=== PATIENT | female | born 1955 | race Caucasian/White ===

== ENCOUNTER → 2024-07-02 | Outpatient (BNVA) | payer MEDICARE, MEDICAID, SELFPAY | END | disposition home or self-care (01) | PROVIDERS: PCP Nurse Practitioner Family; Referring Provider Nurse Practitioner Family; Visit Provider Urology | DX: N81.6 Rectocele (principal); G89.4 Chronic pain syndrome; Z87.440 Personal history of urinary (tract) infections; E11.9 Type 2 diabetes mellitus without complications; I10 Essential (primary) hypertension; N35.92 Unspecified urethral stricture, female; E78.00 Pure hypercholesterolemia, unspecified; K21.9 Gastro-esophageal reflux disease without esophagitis; E03.9 Hypothyroidism, unspecified | CPT/HCPCS: 81003; 99212; G0463 ==

== ENCOUNTER → 2024-09-03 | Outpatient (CLI) | payer MEDICARE, MEDICAID, SELFPAY ==
[2024-09-03 11:01] LABS: Quantiferon-TB* See Sep Rpt
[2024-09-03 11:28] LABS: Basophils % (Auto) 0 % (0-2.5); Eosinophils # (Auto) 0.2 Thou/mm3 (0.0-0.5); Eosinophils % (Auto) 2 % (0-10); Hematocrit 38.6 % (36.0-46.0); Hemoglobin 12.6 g/dL (12.0-16.0); Immature Granulocytes % (Auto) 0 % (0-0); Immature Granulocytes Auto 0.03 Thou/mm3 (0.00-0.00); Lymphocytes # (Auto) 2.5 Thou/mm3 (1.0-4.8); Lymphocytes % (Auto) 29 % (10-50); Mean Corpuscular HGB Conc 32.6 g/dl (31.0-37.0); Mean Corpuscular Hemoglobin 28.1 pg (25.0-35.0); Mean Corpuscular Volume 86 fL (80-100); Monocytes # (Auto) 0.7 Thou/mm3 (0.0-0.8); Monocytes % (Auto) 8 % (0-12); Neutrophils # (Auto) 5.2 Thou/mm3 (1.8-7.7); Neutrophils % (Auto) 61 % (37-80); Nucleated Red Blood Cell % 0 /100 WBC (0); Platelet Count 347 Thou/mm3 (140-440); RDW Standard Deviation 42.8 fL (36.4-46.3); Red Blood Count 4.48 Miln/mm3 (4.00-5.20); White Blood Count 8.6 Thou/mm3 (3.6-11.0)
[2024-09-03 11:33] LABS: Collection Type, Urine Clean Catch
[2024-09-03 11:46] LABS: Parathyroid Hormone Intact 32.7 pg/ml (18.5-88.0)
[2024-09-03 11:52] LABS: Sed Rate (ESR) 25 mm/hr (0-30)
[2024-09-03 11:55] LABS: Folate > 24.00 ng/mL (>5.38); Vitamin B12 784 pg/mL (211-911); Vitamin D 25 Hydroxy Total 40.6 ng/mL (7.3-40.2)
[2024-09-03 11:58] LABS: Alanine Aminotransferase 16 U/L (10-49); Albumin, Serum 4.4 gm/dL (3.4-4.8); Albumin/Globulin Ratio 1.6 (1.2-2.2); Alkaline Phosphatase 89 U/L (46-116); Amylase 82 U/L (30-118); Anion Gap 8 (7-16); Aspartate Amino Transferase 15 U/L (0-34); BUN/Creatinine Ratio 36 Ratio (12-20); Bilirubin,Total 0.4 mg/dL (0.3-1.2); Blood Urea Nitrogen 29 mg/dL (9-23); C-Reactive Protein 2.4 mg/dL (0.0-0.9); Carbon Dioxide 26.7 mMol/L (20.0-31.0); Cardiac Risk Estimate 3.2 RATIO (3.7-5.6); Chloride 102 mMol/L (98-107); Cholesterol 164 mg/dL (132-200); Creatinine (Component) 0.8 mg/dL (0.6-1.3); Free T4 (Free Thyroxine) 1.55 ng/dL (0.89-1.76); Globulin 2.7 gm/dL (2.3-3.5); Glucose 100 mg/dL (74-106); HDL Cholesterol 52 mg/dL (40-60); LDL Cholesterol,Calculated 84 mg/dL (0-130); Lipase 50 U/L (12-53); Osmolality,Calculated 279 (275-295); Phosphorous 2.8 mg/dL (2.4-5.1); Potassium 4.1 mMol/L (3.4-5.1); Sodium 137 mMol/L (136-145); Thyroid Stimulating Hormone 0.02 uIU/mL (0.55-4.78); Total Protein 7.1 gm/dL (5.7-8.2); Triglycerides 138 mg/dL (30-150); eGFR > 60 See Note
[2024-09-03 12:05] LABS: Ferritin 44 ng/mL (7.3-270.7); Glucose Estimated Average 117 mg/dL (80-131); Hemoglobin A1C 5.7 % Hgb (4.8-6.0); Total Iron Binding Capacity 239 mcg/dL (250-425)
[2024-09-03 12:15] LABS: Iron 63 mcg/dL (50-170)
[2024-09-03 12:56] LABS: Bilirubin,Urine Negative (Negative); Blood,Urine Negative (Negative); Clarity,Urine Clear (Clear/Hazy); Color,Urine Yellow (Lt Yel-Yel); Culture Indicated,Urine Not Indicated; Glucose, Urine Negative (Negative); Ketones,Urine Negative (Negative); Leukocyte Esterase,Urine Negative (Negative); Nitrite,Urine Negative (Negative); Protein,Urine Negative (Neg - Trace); RBC,Urine 3 /hpf (0-3); Specific Gravity,Urine 1.025 (1.001-1.035); Squamous Epithelial Cell,Urine 15 /hpf (0-5); Urobilinogen,Urine Negative mg/dL (0.0-1.0); WBC,Urine 1 /hpf (0-5)
[2024-09-03 13:10] LABS: Creatinine MALB Rnd Ur 131 mg/dL (30-125); Microalbumin, Random Urine < 3 mg/L (0-300)
[2024-09-06 06:46] LABS: T3 Uptake* 28 % (22-35)
[2024-09-10 07:04] LABS: Vitamin B1 (Thiamine)* 9 nmol/L (8-30)
== END | disposition home or self-care (01) ==
PROVIDERS: PCP Internal Medicine; Referring Provider Nurse Practitioner Family; Visit Provider Nurse Practitioner Family
DX: Z00.00 Encounter for general adult medical examination without abnormal findings (principal); B37.9 Candidiasis, unspecified; D50.9 Iron deficiency anemia, unspecified; E03.9 Hypothyroidism, unspecified; E11.9 Type 2 diabetes mellitus without complications; E66.9 Obesity, unspecified; E78.5 Hyperlipidemia, unspecified; F33.1 Major depressive disorder, recurrent, moderate; G25.81 Restless legs syndrome; G31.84 Mild cognitive impairment of uncertain or unknown etiology; G43.019 Migraine without aura, intractable, without status migrainosus; G43.111 Migraine with aura, intractable, with status migrainosus; G47.00 Insomnia, unspecified; H01.001 Unspecified blepharitis right upper eyelid; H04.123 Dry eye syndrome of bilateral lacrimal glands; H05.013 Cellulitis of bilateral orbits; H10.13 Acute atopic conjunctivitis, bilateral; H60.313 Diffuse otitis externa, bilateral; H60.8X3 Other otitis externa, bilateral; H62.43 Otitis externa in other diseases classified elsewhere, bilateral; H66.93 Otitis media, unspecified, bilateral; I10 Essential (primary) hypertension; J18.9 Pneumonia, unspecified organism; J30.2 Other seasonal allergic rhinitis; K21.9 Gastro-esophageal reflux disease without esophagitis; K58.2 Mixed irritable bowel syndrome; K59.00 Constipation, unspecified; L29.9 Pruritus, unspecified; M06.4 Inflammatory polyarthropathy; M17.12 Unilateral primary osteoarthritis, left knee; M25.50 Pain in unspecified joint; M25.512 Pain in left shoulder; M25.551 Pain in right hip; M48.061 Spinal stenosis, lumbar region without neurogenic claudication; M48.062 Spinal stenosis, lumbar region with neurogenic claudication; M79.10 Myalgia, unspecified site; M85.80 Other specified disorders of bone density and structure, unspecified site; M89.9 Disorder of bone, unspecified; N32.81 Overactive bladder; N39.0 Urinary tract infection, site not specified; N76.0 Acute vaginitis; N95.1 Menopausal and female climacteric states; N95.9 Unspecified menopausal and perimenopausal disorder; R07.81 Pleurodynia; R07.89 Other chest pain; R09.89 Other specified symptoms and signs involving the circulatory and respiratory systems; R10.13 Epigastric pain; R10.9 Unspecified abdominal pain; R11.0 Nausea; R11.2 Nausea with vomiting, unspecified; R19.7 Diarrhea, unspecified; R30.0 Dysuria; R42 Dizziness and giddiness; R53.1 Weakness; R63.2 Polyphagia; R93.5 Abnormal findings on diagnostic imaging of other abdominal regions, including retroperitoneum; U07.1 COVID-19; W19.XXXA Unspecified fall, initial encounter; Z12.11 Encounter for screening for malignant neoplasm of colon; Z12.31 Encounter for screening mammogram for malignant neoplasm of breast; Z13.820 Encounter for screening for osteoporosis; Z20.822 Contact with and (suspected) exposure to COVID-19; Z71.1 Person with feared health complaint in whom no diagnosis is made; Z71.2 Person consulting for explanation of examination or test findings; Z79.899 Other long term (current) drug therapy; Z96.651 Presence of right artificial knee joint; E55.9 Vitamin D deficiency, unspecified
CPT/HCPCS: 36415; 80053; 80061; 81001; 82043; 82150; 82306; 82570; 82607; 82728; 82746; 83036; 83540; 83550; 83690; 83970; 84100; 84425; 84439; 84443; 84479; 85025; 85652; 86140; 86480

== ENCOUNTER 2024-09-09 12:17 | Emergency (ER) | payer MEDICARE, MEDICAID, SELFPAY ==
[2024-09-09 12:24] VITALS: BP 122/64; PULSE 80; RESP 20; TEMP 36.7; O2SAT 99
--- NOTE | 2024-09-09 12:47 | XR_ITS ---
Examination: PA chest single view TECHNIQUE: Upright PA chest single view Exam date and time: September 09, 2024 1243 hours INDICATIONS: Chest pain today. FINDINGS: Normal heart size. Lungs are clear. The osseous structures are intact IMPRESSION: No active disease
[2024-09-09] MEDS: DIAZEPAM 5 MG TABLET PO (12:48)
[2024-09-09] MEDS: LIDOCAINE VISCOUS 2% 15 ML UDC PO (12:52)
[2024-09-09] MEDS: MG HYD/AL HYD/SIME (Maalox Reg) SUSP 30 ML UDC PO (12:52)
--- NOTE | 2024-09-09 12:54 | PD.EDCHEST ---
ED Chest Pain RME/HPI General Chief Complaint: Shortness of Breath/Dyspnea Stated Complaint: trouble breathing since 0300am Time Seen by Provider: 09/09/24 12:47 Arrival date/time: 09/09/24 12:17 RME / HPI RME / HPI narrative: 69 year old female with history of hypertension, diabetes, hypothyroidism, GERD, s/p hysterectomy presents to the ED for evaluation of chest pain and shortness of breath beginning at 03:00 this morning and remaining constant since. Reports the shortness of breath woke her from sleep and shortly after began to have chest pressure that radiated to her back. 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 Reports taking Nitro without improvement, prompting ED visit. Denies fevers, chills, sweats, n/v, or other associated symptoms. Related Data Home Medications ?Medication ?Instructions ?Recorded ?Confirmed levothyroxine 100 mcg tablet 100 mcg PO QDAY 05/26/20 07/02/24 lisinopril 10 mg tablet 5 mg PO QDAY 05/26/20 07/02/24 metformin 500 mg tablet 500 mg PO BID 05/26/20 07/02/24 Held on 02/17/23. Instructions: Resume on 02/19/23. Resume Metformin in 48 hours omeprazole 20 mg capsule,delayed 20 mg PO QDAY 04/02/21 07/02/24 release calcium 600 mg (as 1 tab PO QDAY 02/17/23 07/02/24 carbonate)-vitamin D3 10 mcg (400 unit) tablet folic acid 1 mg tablet 1 mg PO QDAY 02/17/23 07/02/24 nitrofurantoin 100 mg PO BID 03/25/24 07/02/24 monohydrate/macrocrystals 100 mg capsule (Macrobid) estradiol 0.01% (0.1 mg/gram) 2 g vaginal DIRECTED 07/02/24 07/02/24 vaginal cream (Estrace) Previous Rx's ?Medication ?Instructions ?Recorded diazepam 10 mg tablet 10 mg PO BID PRN muscle relaxation 09/09/24 24 hours #2 tabs Allergies Allergy/AdvReac Type Severity Reaction Status Date / Time No Known Allergies Allergy Verified 09/09/24 12:21 Review of Systems Review of Systems Narrative Review of Systems: Gen: No fever, no chills, no weight loss EYES: No discharge, no visual changes, no pain HEENT: No ear pain, no congestion, no sore throat PULM: +shortness of breath, no cough, no congestion CV: +chest pain, no palpitations, no chest tightness GI: No nausea, no vomiting, no diarrhea, no pain, no constipation : No frequency, no urgency,? no dysuria Musc/skel: No joint pain, no back pain Skin: No rash, no ecchymosis, no lesions Neuro: No weakness, no headache Past Medical History Past Medical History CARDIAC: Positive Hypercholesterolemia and Hypertension GASTROINTESTINAL: Positive Gastrointestinal Disorders, Gall Bladder Disease and Gastroesophageal Reflux Disease REPRODUCTIVE: Positive Previous Pregnancies MUSCULOSKELETAL: Positive Musculoskeletal Disorders and Arthritis ENDOCRINE: Positive Endocrine Disorders and Hypothyroidism Family History FAMILY HISTORY: Positive Family Psychiatric Problems, Family Cardiac Disorders and Family Surgery Surgical History SURGICAL: Positive Cardiac Surgery, Angiogram, Thyroidectomy, Ear Surgery, Arthroscopy and Hysterectomy Social History SMOKING STATUS: Never smoker SUBSTANCE USE: does not use ED Exam Narrative Physical exam: GENERAL APPEARANCE: AxOx4, nontoxic appearing, anxious, teary eyes HEENT: NC, AT. MMM. EOMI, clear conjunctiva, oropharynx clear. NECK: Supple without lymphadenopathy. No stiffness or restricted ROM. HEART: Normal rate and regular rhythm, normal S1/S1, no m/r/g LUNGS: CTAB, moving air well. No crackles or wheezes are heard. ABDOMEN: Soft, nontender, nondistended with good bowel sounds heard. BACK: No midline C/T/L spine pain or deformity, No CVAT, no obvious deformity. EXTREMITIES: Without cyanosis, clubbing or edema. MUSCULOSKELETAL: FROM of all major joints, no chest tenderness, no reproducible chest tenderness NEUROLOGICAL: Grossly nonfocal. Alert and oriented, moving all 4 extremities. CN not formally tested but appear grossly intact. Skin: Warm and dry without any rash. Course Course Course Narrative: chest xray ordered to help determine etiology of chest pain. Quality Measures none Orders Category Date Time Status EKG (ED ONLY) *Do not use* NOW Care 09/09/24 12:26 Completed EKG (ED Only) Stat Exams 09/09/24 12:26 Ordered XR chest 1V Stat Exams 09/09/24 12:47 Completed CBC Stat Lab 09/09/24 13:08 Completed CMP [Comprehensive Metabolic Panel] Stat Lab 09/09/24 13:08 Completed Troponin I Stat Lab 09/09/24 13:08 Completed Diazepam [Valium] Med 09/09/24 12:46 Discontinued 5 mg PO X1 ONE Lidocaine 2% Viscous [Xylocaine 2% Viscous] Med 09/09/24 12:47 Discontinued 15 ml PO X1 ONE mg Hyd/Al Hyd/Lenore Susp [Maalox Susp] Med 09/09/24 12:47 Discontinued 30 ml PO X1 ONE Reevaluation(s) Reevaluation #1: Patient remains clinically stable throughout the emergency department visit. We reviewed all the results, analysis, and treatment plans. Patient is amenable to discharge. Strict return precautions were outlined. Patient was discharged in stable condition. Time: 17:00 Vital Signs Vital signs: Vital Signs Temperature 98.1 F 09/09/24 12:24 Pulse Rate 80 09/09/24 12:24 Respiratory Rate 20 09/09/24 12:24 Blood Pressure 122/64 09/09/24 12:24 Pulse Oximetry (%) 99 09/09/24 12:24 Oxygen Delivery Method Room Air 09/09/24 12:24 Pulse ox is 99% on room air which is adequate. Chest Pain MDM Narrative MDM Narrative:: Shantel Lopez am scribing for and in the presence of Dr. Slaughter. Patient data External records reviewed:: [facility] previous records (I reviewed ED visit on 05/16/2024) Clinical information provided by:: patient Social determinants that could affect healthcare access:: none Patient has the following chronic illnesses:: hypertension, diabetes, hypothyroidism, GERD, s/p hysterectomy, diagnosed with spasms before How is presenting disease/condition affected by chronic disease/condition?: exacerbated by Evaluation data The following diagnostics were reviewed and interpreted by me:: lab results and radiology exam(s) Lab and/or radiology exams considered but not ordered:: None Interpretation Summary: Ordering Physician: Nicholas Slaughter MD Date of Service: 09/09/24 Procedure(s): XR chest 1V Accession Number(s): [id number] cc: Nicholas Slaughter MD; Cammy Conrad MD; Andrei Sanz MD~ Examination: PA chest single view TECHNIQUE: Upright PA chest single view Exam date and time: September 09, 2024 1243 hours INDICATIONS: Chest pain today. FINDINGS: Normal heart size. Lungs are clear. The osseous structures are intact IMPRESSION: No active disease Dictated By: Andrei Sanz MD Signed By: <Electronically signed by Andrei Sanz MD in OV> 09/09/24 1306 Medications / Prescriptions Medications or Prescriptions considered but not ordered:: None Medication administrations:: Medication Administration History Discontinued Medications Al Hydrox/Mg Hydrox/Simethicone (Mg Hyd/Al Hyd/Lenore (Maalox Reg) Susp 30 Ml Udc) 30 ml PO X1 ONE Stop: 09/09/24 12:48 Last Admin: 09/09/24 12:52 Dose: 30 ml Documented By: ABIGAIL Diazepam (Diazepam 5 Mg Tablet) 5 mg PO X1 ONE Stop: 09/09/24 12:47 Last Admin: 09/09/24 12:48 Dose: 5 mg Documented By: ABIGAIL Lidocaine HCl (Lidocaine Viscous 2% 15 Ml Udc) 15 ml PO X1 ONE Stop: 09/09/24 12:48 Last Admin: 09/09/24 12:52 Dose: 15 ml Documented By: ABIGAIL See above Consultations Consultation(s) initiated? (list below): No Diagnosis Chest Pain Differential Diagnosis: pneumothorax, stable angina, unstable angina pectoris, atypical chest pain, st elevation myocardial infarction, costochondritis, chest pain, biliary colic and other (Esophageal spasms ) Most likely diagnosis given after review of the tests above:: Chest pain Anxiety Admission Indicated Admission indicated?: not indicated Admission Request Was there a request for admission?: No Disposition Plan Disposition Plan: Discharge Discharge Attestation Discharge Attestation: The patient and all family members were given an opportunity to ask questions and understood the discharge instructions. Discharge instructions specifically effects, indications for sooner follow up or return to the emergency department, and the expected course of current diagnosis. Patient condition: Stable Discharge Plan Plan Patient Disposition: HOME (Self Care) Prescriptions/Referrals Prescriptions/Med Rec: New diazepam 10 mg tablet 10 mg PO BID PRN (Reason: muscle relaxation) 1 Days Qty: 2 0RF No Action nitrofurantoin monohyd/m-cryst [Macrobid] 100 mg capsule 100 mg PO BID Rx Instructions: must administer with a meal/food lidocaine HCl [Xylocaine] 10 mg/mL (1 %) solution 20 ml Infiltration X1 Qty: 20 0RF triamcinolone acetonide 40 mg/mL suspension 40 mg intra-articular X1 Qty: 1 0RF estradiol [Estrace] 0.01 % (0.1 mg/gram) cream 2 g vaginal DIRECTED Patient Comments: twice a week metformin 500 mg Tablet 500 mg PO BID levothyroxine 100 mcg Tablet 100 mcg PO QDAY lisinopril 10 mg Tablet 5 mg PO QDAY omeprazole 20 mg capsule,delayed release(DR/EC) 20 mg PO QDAY Patient Comments: TAKE 1 CAPSULE BY MOUTH EVERY DAY 30 MINUTES TO 1 HOUR BEFORE A MEAL folic acid 1 mg tablet 1 mg PO QDAY Patient Comments: TAKE 1 TABLET BY MOUTH EVERY DAY calcium carbonate-vitamin D3 600 mg-10 mcg (400 unit) tablet 1 tab PO QDAY Patient Comments: TAKE ONE TABLET VIA ORAL ROUTE ONCE A DAY. Referrals: Cammy Conrad [Primary Care Provider] - In 1 week Problem List Clinical Impression: Chest pain, Anxiety Patient/Caregiver Discharge Instructions Education Materials: ED Anxiety Reaction, ED Chest Pain, Uncertain Cause Additional Instructions: Follow-up with your primary care doctor in 2 to 3 days for recheck. Consider referral to GI specialist for possible testing of your esophageal spasms. Feel free return to the emergency department sooner if symptoms worsen or if he notes any new, concerning issues. Print Language: Vincentian Stand Alone Forms: [employer] Award Info., Patient Portal Info Letter
[2024-09-09 13:33] LABS: Basophils % (Auto) 0 % (0-2.5); Eosinophils # (Auto) 0.2 Thou/mm3 (0.0-0.5); Eosinophils % (Auto) 2 % (0-10); Hematocrit 40.2 % (36.0-46.0); Hemoglobin 13.2 g/dL (12.0-16.0); Immature Granulocytes % (Auto) 0 % (0-0); Immature Granulocytes Auto 0.03 Thou/mm3 (0.00-0.00); Lymphocytes # (Auto) 3.9 Thou/mm3 (1.0-4.8); Lymphocytes % (Auto) 35 % (10-50); Mean Corpuscular HGB Conc 32.8 g/dl (31.0-37.0); Mean Corpuscular Hemoglobin 27.7 pg (25.0-35.0); Mean Corpuscular Volume 84 fL (80-100); Monocytes # (Auto) 0.9 Thou/mm3 (0.0-0.8); Monocytes % (Auto) 8 % (0-12); Neutrophils % (Auto) 55 % (37-80); Nucleated Red Blood Cell % 0 /100 WBC (0); Platelet Count 407 Thou/mm3 (140-440); RDW Standard Deviation 42.5 fL (36.4-46.3); Red Blood Count 4.77 Miln/mm3 (4.00-5.20); White Blood Count 11.1 Thou/mm3 (3.6-11.0)
[2024-09-09 13:56] LABS: Alanine Aminotransferase 20 U/L (10-49); Albumin, Serum 4.5 gm/dL (3.4-4.8); Albumin/Globulin Ratio 1.3 (1.2-2.2); Alkaline Phosphatase 97 U/L (46-116); Anion Gap 13 (7-16); Aspartate Amino Transferase 23 U/L (0-34); BUN/Creatinine Ratio 29 Ratio (12-20); Bilirubin,Total 0.4 mg/dL (0.3-1.2); Blood Urea Nitrogen 23 mg/dL (9-23); Calcium 9.8 mg/dL (8.3-10.6); Calcium (Corrected) 9.8 mg/dL (8.5-10.1); Carbon Dioxide 21.9 mMol/L (20.0-31.0); Chloride 106 mMol/L (98-107); Creatinine (Component) 0.8 mg/dL (0.6-1.3); Globulin 3.4 gm/dL (2.3-3.5); Glucose 117 mg/dL (74-106); Osmolality,Calculated 285 (275-295); Sodium 141 mMol/L (136-145); Total Protein 7.9 gm/dL (5.7-8.2); Troponin I < 0.002 ng/mL (0.0-0.045); eGFR > 60 See Note
[2024-09-09 17:04] VITALS: BP 126/69; PULSE 76; RESP 18; TEMP 36.7; O2SAT 96
== END 2024-09-09 17:20 | disposition home or self-care (01) ==
PROVIDERS: Emergency Provider Emergency Medicine; PCP Internal Medicine
DX: R07.9 Chest pain, unspecified (principal); F41.9 Anxiety disorder, unspecified; I10 Essential (primary) hypertension; E11.9 Type 2 diabetes mellitus without complications; E03.9 Hypothyroidism, unspecified; K21.9 Gastro-esophageal reflux disease without esophagitis
CPT/HCPCS: 36415; 71045; 80053; 84484; 85025; 93005; 99283; J3490; A9270

== ENCOUNTER 2024-09-25 14:19 | Emergency (ER) | payer MEDICARE, MEDICAID, SELFPAY ==
[2024-09-25 14:44] VITALS: BP 118/75; PULSE 75; RESP 20; TEMP 37; O2SAT 97
--- NOTE | 2024-09-25 15:04 | PD.EDRME ---
Rapid Medical Screening Exam RME Arrival date/time: 09/25/24 14:19 69-year-old female who presents to the emergency department complaints of bilateral lower extremity weakness Chief Complaint: Weakness Vital signs: Vital Signs Temperature 98.6 F 09/25/24 14:44 Pulse Rate 75 09/25/24 14:44 Respiratory Rate 20 09/25/24 14:44 Blood Pressure 118/75 09/25/24 14:44 Pulse Oximetry (%) 97 09/25/24 14:44 Oxygen Delivery Method Room Air 09/25/24 14:44
[2024-09-25 15:24] LABS: Collection Type, Urine Clean Catch
[2024-09-25 15:40] LABS: Bilirubin,Urine Negative (Negative); Blood,Urine Negative (Negative); Clarity,Urine Clear (Clear/Hazy); Color,Urine Lt-Yellow (Lt Yel-Yel); Culture Indicated,Urine Not Indicated; Glucose, Urine Negative (Negative); Ketones,Urine Negative (Negative); Leukocyte Esterase,Urine Negative (Negative); Nitrite,Urine Negative (Negative); Protein,Urine Negative (Neg - Trace); RBC,Urine 1 /hpf (0-3); Specific Gravity,Urine 1.022 (1.001-1.035); Squamous Epithelial Cell,Urine 4 /hpf (0-5); Urobilinogen,Urine Negative mg/dL (0.0-1.0); WBC,Urine 1 /hpf (0-5)
[2024-09-25 16:06] LABS: Basophils % (Auto) 0 % (0-2.5); Eosinophils # (Auto) 0.1 Thou/mm3 (0.0-0.5); Eosinophils % (Auto) 1 % (0-10); Hematocrit 38.7 % (36.0-46.0); Hemoglobin 12.9 g/dL (12.0-16.0); Immature Granulocytes % (Auto) 0 % (0-0); Immature Granulocytes Auto 0.05 Thou/mm3 (0.00-0.00); Lymphocytes % (Auto) 38 % (10-50); Mean Corpuscular HGB Conc 33.3 g/dl (31.0-37.0); Mean Corpuscular Hemoglobin 28.1 pg (25.0-35.0); Mean Corpuscular Volume 84 fL (80-100); Monocytes # (Auto) 0.9 Thou/mm3 (0.0-0.8); Monocytes % (Auto) 7 % (0-12); Neutrophils # (Auto) 7.2 Thou/mm3 (1.8-7.7); Neutrophils % (Auto) 54 % (37-80); Nucleated Red Blood Cell % 0 /100 WBC (0); Platelet Count 306 Thou/mm3 (140-440); RDW Standard Deviation 43.4 fL (36.4-46.3); Red Blood Count 4.59 Miln/mm3 (4.00-5.20); White Blood Count 13.3 Thou/mm3 (3.6-11.0)
[2024-09-25 16:31] LABS: Alanine Aminotransferase 10 U/L (10-49); Albumin/Globulin Ratio 1.3 (1.2-2.2); Alkaline Phosphatase 102 U/L (46-116); Anion Gap 9 (7-16); Aspartate Amino Transferase 12 U/L (0-34); BUN/Creatinine Ratio 28 Ratio (12-20); Bilirubin,Total 0.3 mg/dL (0.3-1.2); Blood Urea Nitrogen 22 mg/dL (9-23); Calcium 9.4 mg/dL (8.3-10.6); Calcium (Corrected) 9.4 mg/dL (8.5-10.1); Chloride 106 mMol/L (98-107); Creatine Kinase 28 U/L (34-171); Creatinine (Component) 0.8 mg/dL (0.6-1.3); Glucose 94 mg/dL (74-106); Osmolality,Calculated 280 (275-295); Potassium 4.2 mMol/L (3.4-5.1); Sodium 139 mMol/L (136-145); eGFR > 60 See Note
--- NOTE | 2024-09-25 19:20 | EDNOTE_ITS ---
ED Weakness RME/HPI General Chief complaint: Weakness Stated complaint: WEAK FROM WAIST DOWN; STRUGGLING TO STAND Time Seen by Provider: 09/25/24 19:19 Arrival date/time: 09/25/24 14:19 RME / HPI RME / HPI Narrative: 69-year-old female who presents to the emergency department complaints of bilateral lower extremity weakness. Is been ongoing for the last 3 days. Patient is telling me that it is hard for him to stand up from sitting position. Once patient is walking normal. Patient denies any hip pain denies any numbness to the leg denies any paresthesias to the leg denies any bladder incontinence denies any bowel incontinence denies any back pain. Patient also denies any fever. Related Data Home Medications ?Medication ?Instructions ?Recorded ?Confirmed levothyroxine 100 mcg tablet 100 mcg PO QDAY 05/26/20 07/02/24 lisinopril 10 mg tablet 5 mg PO QDAY 05/26/20 metformin 500 mg tablet 500 mg PO BID 05/26/2007/02 Held on 02/17/23. Instructions: Resume on 02/19/23. Resume Metformin in 48 hours omeprazole 20 mg capsule,delayed 20 mg PO QDAY 04/02/2 1 07/02/24 release calcium 600 mg (as 1 tab PO QDAY 02/17/2307/02 carbonate)-vitamin D3 10 mcg (400 unit) tablet folic acid 1 mg tablet 1 mg PO QDAY 02/17/23 nitrofurantoin 100 mg PO BID 03/25/2407/02 monohydrate/macrocrystals 100 mg capsule (Macrobid) estradiol 0.01% (0.1 mg/gram) 2 g vaginal DIRECTED 07/02/24 07/02/24 vaginal cream (Estrace) Allergies Allergy/AdvReac Type Severity Reaction Status Date / Time No Known Allergies Allergy Verified 09/09/24 12:21 Review of Systems Review of Systems Narrative Review of Systems: VITAL SIGNS: Reviewed. GENERAL APPEARANCE: Alert and interactive, follows commands, no acute distress, HEAD AND FACE: Non-traumatic. ENT: PERRL, pink conjunctivitis, eyelid no trauma, Mucous membrane moist. NECK: Supple, nontender, no nuchal rigidity. CHEST: No tenderness, no crepitus, no paradoxical movement, no retractions. LUNGS: Clear, well ventilated, symmetric, no rales, no wheezing, no ronchi, no stridor, good breath sounds bilaterally. HEART: Regular rate, regular rhythm, no murmur, no gallops. ABDOMEN: Soft, positive bowel sounds, nondistended, no guarding, nontender, no rebound, no masses, RECTAL: Deferred. GENITAL: Deferred. NEUROLOGICAL: Gross motor function intact sensory function intact, Appropriate for age. MUSCULOSKELETAL: low back nontender, full range of motion. EXTREMITIES: Nontender, full range of motion. SKIN: Color pink, dry, no rash, no lacerations, no abrasions, no contusions. LYMPHATICS: Deferred. ED Exam Narrative Physical exam: VITAL SIGNS: Reviewed. GENERAL APPEARANCE: Alert and interactive, follows commands, no acute distress, HEAD AND FACE: Non-traumatic. ENT: PERRL, pink conjunctivitis, eyelid no trauma, Mucous membrane moist. NECK: Supple, nontender, no nuchal rigidity. CHEST: No tenderness, no crepitus, no paradoxical movement, no retractions. LUNGS: Clear, well ventilated, symmetric, no rales, no wheezing, no ronchi, no stridor, good breath sounds bilaterally. HEART: Regular rate, regular rhythm, no murmur, no gallops. ABDOMEN: Soft, positive bowel sounds, nondistended, no guarding, nontender, no rebound, no masses, RECTAL: Deferred. GENITAL: Deferred. NEUROLOGICAL: Gross motor function intact sensory function intact, Appropriate for age. MUSCULOSKELETAL: low back nontender, full range of motion. EXTREMITIES: Nontender, full range of motion. SKIN: Color pink, dry, no rash, no lacerations, no abrasions, no contusions. LYMPHATICS: Deferred. Course Quality Measures none Orders Category Date Time Status CBC Stat Lab 09/25/24 15:44 Completed Comprehensive Metabolic Panel Stat Lab 09/25/24 15:44 Completed Creatine Kinase Stat Lab 09/25/24 15:44 Completed UA, C/S IF [Urinalysis, C/S if Indicated] Stat Lab 09/25/24 15:19 Completed Vital Signs Vital signs: Vital Signs Temperature 98.6 F 09/25/24 14:44 Pulse Rate 75 09/25/24 14:44 Respiratory Rate 20 09/25/24 14:44 Blood Pressure 118/75 09/25/24 14:44 Pulse Oximetry (%) 97 09/25/24 14:44 Oxygen Delivery Method Room Air 09/25/24 14:44 Weakness [facility] [place] Narrative [facility] [place] Narrative:: 69-year-old female who presents to the emergency department complaints of bilateral lower extremity weakness. Is been ongoing for the last 3 days. Patient is telling me that it is hard for him to stand up from sitting position. Once patient is walking normal. Patient denies any hip pain denies any numbness to the leg denies any paresthesias to the leg denies any bladder incontinence denies any bowel incontinence denies any back pain. Patient also denies any fever. Patient's laboratory workup all came back unremarkable. She was witnessed by me walking normal. I advised the patient to follow-up closely with PCP and for referral to specialist if needed. Further imaging is not needed at this time. Patient is showing any cardiac symptoms. Patient appears nontoxic and hemodynamically stable. Patient discharged home and instructed to follow-up with primary care provider in 24 to 48 hours. Instructed to return to the emergency department immediately if worsening of symptoms Patient data External records reviewed:: None Clinical information provided by:: none Social determinants that could affect healthcare access:: none Patient has the following chronic illnesses:: None How is presenting disease/condition affected by chronic disease/condition?: no chronic disease Evaluation data The following diagnostics were reviewed and interpreted by me:: lab results Lab and/or radiology exams considered but not ordered:: None Interpretation Summary: None see results in MDM Medications / Prescriptions Medications or Prescriptions considered but not ordered:: None Medication administrations:: None Consultations Consultation(s) initiated? (list below): No Diagnosis Weakness Differential Diagnosis: dehydration and other (Generalized weakness) Most likely diagnosis given after review of the tests above:: Generalized weakness Admission Indicated Admission indicated?: not indicated Explain why admission is indicated or not indicated:: Stable Admission Request Was there a request for admission?: No Disposition Plan Disposition Plan: Discharge Discharge Attestation Discharge Attestation: The patient and all family members were given an opportunity to ask questions and understood the discharge instructions. Discharge instructions specifically effects, indications for sooner follow up or return to the emergency department, and the expected course of current diagnosis. Patient condition: Stable Discharge Plan Plan Patient Disposition: HOME (Self Care) Disposition Comment: Stable Prescriptions/Referrals Prescriptions/Med Rec: No Action nitrofurantoin monohyd/m-cryst [Macrobid] 100 mg capsule 100 mg PO BID Rx Instructions: must administer with a meal/food lidocaine HCl [Xylocaine] 10 mg/mL (1 %) solution 20 ml Infiltration X1 Qty: 20 0RF triamcinolone acetonide 40 mg/mL suspension 40 mg intra-articular X1 Qty: 1 0RF estradiol [Estrace] 0.01 % (0.1 mg/gram) cream 2 g vaginal DIRECTED Patient Comments: twice a week metformin 500 mg Tablet 500 mg PO BID levothyroxine 100 mcg Tablet 100 mcg PO QDAY lisinopril 10 mg Tablet 5 mg PO QDAY omeprazole 20 mg capsule,delayed release(DR/EC) 20 mg PO QDAY Patient Comments: TAKE 1 CAPSULE BY MOUTH EVERY DAY 30 MINUTES TO 1 HOUR BEFORE A MEAL folic acid 1 mg tablet 1 mg PO QDAY Patient Comments: TAKE 1 TABLET BY MOUTH EVERY DAY calcium carbonate-vitamin D3 600 mg-10 mcg (400 unit) tablet 1 tab PO QDAY Patient Comments: TAKE ONE TABLET VIA ORAL ROUTE ONCE A DAY. Referrals: Cammy Conrad MD [Primary Care Provider] - In 1 week Problem List Clinical Impression: Weakness generalized Patient/Caregiver Discharge Instructions Discharge Activity: activity as tolerated Education Materials: ED Weakness (Uncertain Cause) Additional Instructions: Thank you for the opportunity for serving you today. You are stable for discharged . You are advised to: Follow-up with your PCP in 1 to 2 days Return to ED for worsening of symptoms Print Language: Upper Sorbian Stand Alone Forms: [employer] Award Info., Patient Portal Info Letter SHANE/MARYANNE Supervising Physician SHANE/MARYANNE Supervising Physician: MD Graham
[2024-09-25 19:27] VITALS: BP 131/72; PULSE 80; RESP 20; TEMP 36.9; O2SAT 95
== END 2024-09-25 20:37 | disposition home or self-care (01) ==
PROVIDERS: Nurse Practitioner Primary Care; Emergency Provider Emergency Medicine; PCP Internal Medicine
DX: R53.1 Weakness (principal)
CPT/HCPCS: 36415; 80053; 81001; 82550; 85025; 99283

== ENCOUNTER → 2024-11-04 | Outpatient (CLI) | payer MEDICARE, MEDICAID, SELFPAY ==
--- NOTE | 2024-11-04 08:52 | XR_ITS ---
Examination: Wrist, left 3 views Technique: Wrist AP, oblique, lateral 3 views Date and time of exam: November 04, 2024 0915 hours INDICATIONS: Left wrist pain 15 years FINDINGS: Severe osteopenia Advanced narrowing radiocarpal intercarpal and carpometacarpal joints No fractures IMPRESSION: Severe osteopenia Advanced narrowing radiocarpal, intercarpal carpometacarpal joints
--- NOTE | 2024-11-04 08:52 | XR_ITS ---
Examination: Bilateral hands, 6 views. Technique: AP, Oblique, Lateral each hand total 6 views Date and time of exam: November 04, 2024 0915 hours INDICATIONS: Bilateral hand pain 15 years. FINDINGS: Severe osteopenia Bilateral moderate to advanced diffuse narrowing joints of the wrists and hands No erosive arthritis No fractures No opaque foreign bodies No avascular necrosis IMPRESSION: Severe osteopenia Bilateral moderate to advanced diffuse narrowing joints of the wrists and hands No erosive arthritis
--- NOTE | 2024-11-04 08:53 | XR_ITS ---
Examination: Foot bilateral, 6 views Technique: AP, oblique, lateral views each foot total 6 views Date and time of exam: November 04, 2024 0915 hours INDICATIONS: Palpable lump on the lateral side of both feet noticed beginning 3 years ago FINDINGS: Severe osteopenia Bilateral soft tissue masses at the level of the base of the fifth metatarsals, more prominent on the left side No acute fractures No foreign bodies No cortical bone obstruction Diffuse moderate narrowing joints of right and left foot IMPRESSION: Bilateral soft tissue masses at the level of the base of the fifth metatarsals, more prominent on the left side Consider ultrasound soft tissue bilateral feet at the area concern
== END | disposition home or self-care (01) ==
LOC: CDIM 08:42
PROVIDERS: PCP Internal Medicine; Referring Provider Nurse Practitioner; Visit Provider Nurse Practitioner
DX: M85.89 Other specified disorders of bone density and structure, multiple sites (principal); M25.832 Other specified joint disorders, left wrist; M25.831 Other specified joint disorders, right wrist; M25.842 Other specified joint disorders, left hand; M25.841 Other specified joint disorders, right hand; R22.43 Localized swelling, mass and lump, lower limb, bilateral
CPT/HCPCS: 73110; 73130; 73630

== ENCOUNTER → 2024-12-06 | Outpatient (CLI) | payer MEDICARE, MEDICAID, SELFPAY ==
[2024-12-06 09:05] LABS: Thyroid Stimulating Hormone 4.51 uIU/mL (0.55-4.78)
[2024-12-06 09:14] LABS: Vitamin D 25 Hydroxy Total 35.9 ng/mL (7.3-40.2)
[2024-12-06 14:54] LABS: Ferritin 29 ng/mL (7.3-270.7); Iron 63 mcg/dL (50-170); Percent Iron Saturation 26 % (20-55); Total Iron Binding Capacity 241 mcg/dL (250-425); Unsaturated Iron Binding 178 (225-295)
[2024-12-11 06:50] LABS: T3 Uptake* 29 % (22-35); T3, Reverse, LC/MS/MS* 16 ng/dL (8-25); Thyroid Peroxidase Antibodies* <1 IU/mL (<9)
== END | disposition home or self-care (01) ==
LOC: COPL 07:14
PROVIDERS: PCP Nurse Practitioner Family; Referring Provider Nurse Practitioner Family; Visit Provider Nurse Practitioner Family
DX: E03.9 Hypothyroidism, unspecified (principal); D50.9 Iron deficiency anemia, unspecified; R53.83 Other fatigue
CPT/HCPCS: 36415; 82306; 82728; 83540; 83550; 84443; 84479; 84482; 86376

== ENCOUNTER → 2025-01-07 | Outpatient (BNVA) | payer MEDICARE, MEDICAID, SELFPAY | END | disposition home or self-care (01) | PROVIDERS: PCP Nurse Practitioner Family; Referring Provider Nurse Practitioner Family; Visit Provider Urology | DX: G89.4 Chronic pain syndrome (principal); R10.2 Pelvic and perineal pain; Z87.440 Personal history of urinary (tract) infections; N81.6 Rectocele; E11.9 Type 2 diabetes mellitus without complications; I10 Essential (primary) hypertension; E78.00 Pure hypercholesterolemia, unspecified; K21.9 Gastro-esophageal reflux disease without esophagitis | CPT/HCPCS: 81003; 99212; G0463 ==

== ENCOUNTER 2025-01-14 11:40 | Emergency (ER) | payer MEDICARE, MEDICAID, SELFPAY ==
[2025-01-14 11:40] VITALS: BMI 26.5
[2025-01-14 11:52] VITALS: BP 120/71; PULSE 76; RESP 18; TEMP 36.8; O2SAT 95
--- NOTE | 2025-01-14 12:01 | EKG_ITS ---
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
--- NOTE | 2025-01-14 12:01 | XR_ITS ---
Examination: CT brain head without contrast. 2-D sagittal coronal reconstructions Date and time of exam:January 14, 2025 1208 hours Comparison October 08, 2022 INDICATIONS: Dizziness episodes 3 weeks CTDI: vol (mGy):44 DLP: (mGycm):878 Technique: Multiple CT axial sections of the brain have been obtained, 5 mm slice thickness. Contrast has not been administered. 2-D sagittal, coronal reconstructions have been obtained Low dose protocols were performed. One or more of the following dose reduction techniques were used; automated exposure control, adjustment of the mA and/or KV according to patient size, use of iterative reconstruction technique. Findings: Stable mild asymmetric enlargement left lateral ventricular system Intra-axial or extra-axial hemorrhage density is not seen. No mass effect or midline shift Basal cisterns are not remarkable. Fourth ventricle is midline. Cranial vault intact. Impression: No interval acute hemorrhage, mass effect or midline shift
--- NOTE | 2025-01-14 12:03 | PD.EDHA ---
ED Headache RME/HPI General Chief Complaint: Headache Stated Complaint: HEADACHE FOR 3 WEEKS Time Seen by Provider: 01/14/25 11:54 Source: patient Arrival date/time: 01/14/25 11:40 69-year-old female with a history of hypertension, hypothyroidism, type 2 diabetes presents to the emergency room with a chief complaint of a headache x 3 weeks. Patient was sent over by her primary care provider. Mode of arrival: ambulatory Limitations: no limitations Related Data Home Medications ?Medication ?Instructions ?Recorded ?Confirmed levothyroxine 100 mcg tablet 100 mcg PO QDAY 05/26/20 01/07/25 lisinopril 10 mg tablet 5 mg PO QDAY 05/26/20 01/07/25 metformin 500 mg tablet 500 mg PO BID 05/26/20 01/07/25 Held on 02/17/23. Instructions: Resume on 02/19/23. Resume Metformin in 48 hours omeprazole 20 mg capsule,delayed 20 mg PO QDAY 04/02/21 01/07/25 release calcium 600 mg (as 1 tab PO QDAY 02/17/23 01/07/25 carbonate)-vitamin D3 10 mcg (400 unit) tablet folic acid 1 mg tablet 1 mg PO QDAY 02/17/23 01/07/25 nitrofurantoin 100 mg PO BID 03/25/24 01/07/25 monohydrate/macrocrystals 100 mg capsule (Macrobid) estradiol 0.01% (0.1 mg/gram) 2 g vaginal DIRECTED 07/02/24 01/07/25 vaginal cream (Estrace) Previous Rx's ?Medication ?Instructions ?Recorded acetaminophen-caffeine 500 mg-65 1 tab PO Q8H PRN pain #30 tabs 01/14/25 mg tablet (Excedrin Tension Headache) Allergies Allergy/AdvReac Type Severity Reaction Status Date / Time No Known Allergies Allergy Verified 01/14/25 11:42 Review of Systems Review of Systems Systems Reviewed: All systems reviewed, normal except as documented Constitutional Constitutional: Reports system reviewed and no additional complaints, except as documented, Denies fatigue, Denies fever(s), Reports headache(s) and Denies weakness Eyes Eyes: Reports system reviewed and no additional complaints, except as documented, Denies blurry vision and Denies change in vision ENT Ears, Nose, Mouth, and Throat: Reports system reviewed and no additional complaints, except as documented, Denies otalgia, Reports headache(s), Denies nasal congestion, Denies throat swelling and Denies vertigo Cardiovascular Cardiovascular: Reports system reviewed and no additional complaints, except as documented, Denies chest pain, Denies dyspnea and Denies dyspnea on exertion Respiratory Respiratory: Reports system reviewed and no additional complaints, except as documented, Denies chest congestion, Denies cough, Denies dyspnea, Denies dyspnea on exertion and Denies wheezing Gastrointestinal Gastrointestinal: Reports system reviewed and no additional complaints, except as documented, Denies abdominal pain, Denies cramping, Denies nausea and Denies vomiting Genitourinary Genitourinary: Reports system reviewed and no additional complaints, except as documented Musculoskeletal Musculoskeletal: Reports system reviewed and no additional complaints, except as documented and Denies back pain Integumentary/Breasts Skin/Breast: Reports system reviewed and no additional complaints, except as documented and Denies wounds Neurologic Neurologic: Reports system reviewed and no additional complaints, except as documented, Denies confusion, Reports headache(s), Denies lack of coordination, Denies vertigo and Denies weakness Psychiatric Psychiatric: Reports system reviewed and no additional complaints, except as documented, Denies anxiety, Denies confusion, Denies depression, Denies paranoia, Denies suicidal ideation and Denies tactile hallucinations Endocrine Endocrine: Reports system reviewed and no additional complaints, except as documented and Denies fatigue Hematologic/Lymphatic Hematologic/Lymphatic: Reports system reviewed and no additional complaints, except as documented and Denies lymphadenopathy Allergic/Immunologic Allergic/Immunologic: Reports system reviewed and no additional complaints, except as documented, Denies throat swelling, Denies urticaria and Denies wheezing ED Exam General Limitations: Present no limitations General appearance: Present alert and in no apparent distress Head Head exam: Present atraumatic, normocephalic and normal inspection Expanded Head Exam Head exam physical: Absent laceration, abrasion, contusion, hematoma, raccoon eyes, Alvarez's sign, tenderness of temporal artery, CSF rhinorrhea or CSF otorrhea Eye Eye exam: Present normal appearance, PERRL and EOMI ENT ENT exam: Present normal exam, normal oropharynx and mucous membranes moist Neck Neck exam: Present normal inspection, full ROM and trachea midline Chest Chest inspection: Present normal inspection and symmetric chest wall rise Respiratory Respiratory exam: Present normal lung sounds bilaterally Cardiovascular Cardiovascular exam: Present regular rate, normal rhythm and normal heart sounds Abdominal Exam Abdominal exam: Present soft and normal bowel sounds Extremities Exam Extremities exam: Present normal inspection and full ROM Back Exam Back exam: Present normal inspection and full ROM Neurological Exam Neurological exam: Present alert, oriented X3 and CN II-XII intact Psychiatric Psychiatric exam: Present normal affect and normal mood Skin Skin exam: Present warm, dry, intact and normal color Course Quality Measures none Orders Category Date Time Status EKG (ED ONLY) *Do not use* NOW Care 01/14/25 12:[address] head/brain wo con Stat Exams 01/14/25 12:01 Completed EKG (ED Only) Stat Exams 01/14/25 12:01 Draft BNP [B-Type Natriuretic Peptide] Stat Lab 01/14/25 12:22 Completed CBC Stat Lab 01/14/25 12:22 Completed Comprehensive Metabolic Panel Stat Lab 01/14/25 12:22 Completed Troponin I Stat Lab 01/14/25 12:22 Completed Urinalysis Stat Lab 01/14/25 12:45 Completed Urine Culture Stat Lab 01/14/25 12:45 Received Ketorolac Inj [Toradol Inj] Med 01/14/25 13:26 Discontinued 30 mg IM X1 ONE Meclizine HCl [Antivert] Med 01/14/25 12:01 Discontinued 25 mg PO X1 ONE Vital Signs Vital signs: Vital Signs Temperature 98.3 F 01/14/25 11:52 Pulse Rate 76 01/14/25 11:52 Respiratory Rate 18 01/14/25 11:52 Blood Pressure 120/71 01/14/25 11:52 Pulse Oximetry (%) 95 01/14/25 11:52 Oxygen Delivery Method Room Air 01/14/25 11:52 O2 saturation 95% within normal limits Headache MDM Narrative MDM Narrative:: 69-year-old female with a history of hypertension, hypothyroidism, type 2 diabetes presents to the emergency room with a chief complaint of a headache x 3 weeks. Patient was sent over by her primary care provider. Patient is hemodynamically stable and in no apparent distress Physical examination shows a normal neurological exam. The patient is a GCS of 15 she is alert and oriented x 3 pupils are PERRLA EOMs are intact. The patient does not have any focal neurodeficits Patient was sent over by her primary care provider for CT of her head. A CT of her head was ordered and was negative for any acute findings CBC CMP and urinalysis are within normal limits Patient was discharged and educated to follow-up with primary care provider in the next 24 to 48 hours and return to the emergency room for any evidence of worsening signs or symptoms Patient data External records reviewed:: [facility] previous records Clinical information provided by:: patient Social determinants that could affect healthcare access:: none Patient has the following chronic illnesses:: No chronic illness How is presenting disease/condition affected by chronic disease/condition?: no chronic disease Evaluation data The following diagnostics were reviewed and interpreted by me:: lab results and radiology exam(s) Lab and/or radiology exams considered but not ordered:: Labs and radiology exams considered and ordered Interpretation Summary: CT head and brain-Findings: Stable mild asymmetric enlargement left lateral ventricular system Intra-axial or extra-axial hemorrhage density is not seen. No mass effect or midline shift Basal cisterns are not remarkable. Fourth ventricle is midline. Cranial vault intact. Impression: No interval acute hemorrhage, mass effect or midline shift Medications / Prescriptions Medications or Prescriptions considered but not ordered:: Medication given Medication administrations:: Medication Administration History Discontinued Medications Ketorolac Tromethamine (Ketorolac Inj 60 Mg/2 Ml Vial) 30 mg IM X1 ONE Stop: 01/14/25 13:27 Last Admin: 01/14/25 13:54 Dose: 30 mg Documented By: Meclizine HCl (Meclizine Hcl 25 Mg Tablet) 25 mg PO X1 ONE Stop: 01/14/25 12:02 Last Admin: 01/14/25 13:54 Dose: 25 mg Documented By: Medication given Consultations Consultation(s) initiated? (list below): No Diagnosis Differential diagnosis headache: migraine, tension headache, headache, sinusitis and other Most likely diagnosis given after review of the tests above:: Headache Admission Indicated Admission indicated?: not indicated Admission Request Was there a request for admission?: No Disposition Plan Disposition Plan: Discharge Discharge Attestation Discharge Attestation: The patient and all family members were given an opportunity to ask questions and understood the discharge instructions. Discharge instructions specifically effects, indications for sooner follow up or return to the emergency department, and the expected course of current diagnosis. Patient condition: Stable Discharge Plan Plan Patient Disposition: HOME (Self Care) Discharge Disposition comment: Stable Prescriptions/Referrals Prescriptions/Med Rec: New Excedrin Tension Headache 500-65 mg tablet 1 tab PO Q8H PRN (Reason: pain) Qty: 30 0RF No Action nitrofurantoin monohyd/m-cryst [Macrobid] 100 mg capsule 100 mg PO BID Rx Instructions: must administer with a meal/food lidocaine HCl [Xylocaine] 10 mg/mL (1 %) solution 20 ml Infiltration X1 Qty: 20 0RF triamcinolone acetonide 40 mg/mL suspension 40 mg intra-articular X1 Qty: 1 0RF estradiol [Estrace] 0.01 % (0.1 mg/gram) cream 2 g vaginal DIRECTED Patient Comments: twice a week metformin 500 mg Tablet 500 mg PO BID levothyroxine 100 mcg Tablet 100 mcg PO QDAY lisinopril 10 mg Tablet 5 mg PO QDAY omeprazole 20 mg capsule,delayed release(DR/EC) 20 mg PO QDAY Patient Comments: TAKE 1 CAPSULE BY MOUTH EVERY DAY 30 MINUTES TO 1 HOUR BEFORE A MEAL folic acid 1 mg tablet 1 mg PO QDAY Patient Comments: TAKE 1 TABLET BY MOUTH EVERY DAY calcium carbonate-vitamin D3 600 mg-10 mcg (400 unit) tablet 1 tab PO QDAY Patient Comments: TAKE ONE TABLET VIA ORAL ROUTE ONCE A DAY. Referrals: No Primary/Family,Physician [Primary Care Provider] - In 1 week Problem List Clinical Impression: Headache Patient/Caregiver Discharge Instructions Education Materials: Self-Care for Headaches Additional Instructions: Please follow-up with your primary care provider in the next [address] of your head and brain was completed and was negative for any acute findings. Your blood work was negative for any acute findings For any evidence of worsening signs or symptoms return to the emergency room immediately Print Language: Turkish Stand Alone Forms: [employer] Award Info., Patient Portal Info Letter PA/WATER PLANT OPERATOR Supervising Physician PA/WATER PLANT OPERATOR Supervising Physician: Dr. Serrano
[2025-01-14 12:38] LABS: Basophils % (Auto) 0 % (0-2.5); Eosinophils # (Auto) 0.2 Thou/mm3 (0.0-0.5); Eosinophils % (Auto) 2 % (0-10); Hematocrit 38.1 % (36.0-46.0); Hemoglobin 12.9 g/dL (12.0-16.0); Immature Granulocytes % (Auto) 0 % (0-0); Immature Granulocytes Auto 0.05 Thou/mm3 (0.00-0.00); Lymphocytes # (Auto) 3.8 Thou/mm3 (1.0-4.8); Lymphocytes % (Auto) 30 % (10-50); Mean Corpuscular HGB Conc 33.9 g/dl (31.0-37.0); Mean Corpuscular Hemoglobin 29.2 pg (25.0-35.0); Mean Corpuscular Volume 86 fL (80-100); Monocytes # (Auto) 1.1 Thou/mm3 (0.0-0.8); Monocytes % (Auto) 9 % (0-12); Neutrophils # (Auto) 7.3 Thou/mm3 (1.8-7.7); Neutrophils % (Auto) 59 % (37-80); Nucleated Red Blood Cell % 0 /100 WBC (0); Platelet Count 229 Thou/mm3 (140-440); RDW Standard Deviation 45.4 fL (36.4-46.3); Red Blood Count 4.42 Miln/mm3 (4.00-5.20); White Blood Count 12.5 Thou/mm3 (3.6-11.0)
[2025-01-14 12:58] LABS: B-Type Natriuretic Peptide 99 pg/mL (0-100)
[2025-01-14 13:02] LABS: Alanine Aminotransferase 17 U/L (10-49); Albumin, Serum 4.3 gm/dL (3.4-4.8); Albumin/Globulin Ratio 1.9 (1.2-2.2); Alkaline Phosphatase 77 U/L (46-116); Anion Gap 9 (7-16); BUN/Creatinine Ratio 29 Ratio (12-20); Bilirubin,Total 0.6 mg/dL (0.3-1.2); Blood Urea Nitrogen 23 mg/dL (9-23); Calcium 9.8 mg/dL (8.3-10.6); Calcium (Corrected) 9.8 mg/dL (8.5-10.1); Chloride 106 mMol/L (98-107); Creatinine (Component) 0.8 mg/dL (0.6-1.3); Estimated Creatinine Clearance 60.6 mL/min (>60); Globulin 2.3 gm/dL (2.3-3.5); Glucose 131 mg/dL (74-106); Osmolality,Calculated 285 (275-295); Potassium 3.7 mMol/L (3.4-5.1); Sodium 140 mMol/L (136-145); Total Protein 6.6 gm/dL (5.7-8.2); Troponin I < 0.020 ng/mL (0.0-0.045); eGFR > 60 See Note
[2025-01-14 13:02] LABS: Collection Type, Urine Clean Catch
[2025-01-14 13:13] LABS: Bacteria,Urine Rare; Bilirubin,Urine Negative (Negative); Blood,Urine Negative (Negative); Calcium Oxalate Crystals,Urine 1+; Color,Urine Yellow (Lt Yel-Yel); Glucose, Urine Negative (Negative); Ketones,Urine Negative (Negative); Leukocyte Esterase,Urine Positive (Negative); Nitrite,Urine Negative (Negative); Protein,Urine Negative (Neg - Trace); RBC,Urine 15 /hpf (0-3); Specific Gravity,Urine 1.023 (1.001-1.035); Squamous Epithelial Cell,Urine 6 /hpf (0-5); Urobilinogen,Urine Negative mg/dL (0.0-1.0); WBC,Urine 7 /hpf (0-5)
[2025-01-14 13:40] LABS: Clarity,Urine Hazy (Clear/Hazy)
[2025-01-14] MEDS: KETOROLAC INJ 60 MG/2 ML VIAL 30 MG IM (13:54)
[2025-01-14] MEDS: MECLIZINE HCL 25 MG TABLET PO (13:54)
== END 2025-01-14 14:37 | disposition home or self-care (01) ==
PROVIDERS: Nurse Practitioner Family; Emergency Provider Family Medicine
DX: R51.9 Headache, unspecified (principal); R42 Dizziness and giddiness; R94.31 Abnormal electrocardiogram [ECG] [EKG]; I10 Essential (primary) hypertension
CPT/HCPCS: 36415; 70450; 80053; 81001; 83880; 84484; 85025; 87086; 93005; 96372; 99284; J1885; A9270

== ENCOUNTER 2025-02-01 17:49 | Emergency (ER) | payer MEDICARE, MEDICAID, SELFPAY ==
[2025-02-01 17:49] VITALS: BMI 26.5
[2025-02-01 18:21] VITALS: BP 125/76; PULSE 87; RESP 16; TEMP 37.1; O2SAT 97
--- NOTE | 2025-02-01 18:30 | EKG_ITS ---
[facility] Test Date: 2025-02-01 Pat Name: LISA TINAJERO Department: Room: - Gender: Female Network Control Supervisor: : 1955 Requested By: Rafael Mendoza Order Number: [id number] Reading MD: Rafael Mendoza Measurements Intervals [place] Rate: 85 P: 55 ID: [id number] QRS: 5 QRSD: 74 T: 63 QT: 354 QTc: 423 Interpretive Statements SINUS RHYTHM NONSPECIFIC T-WAVE ABNORMALITY Compared to ECG 01/14/2025 12:12:30 No significant changes /store/S0/[id number].pdf
--- NOTE | 2025-02-01 18:31 | EDRME_ITS ---
Rapid Medical Screening Exam [facility] Arrival date/time: 02/01/25 17:49 Chief Complaint: Abdominal Pain Vital signs: Vital Signs Temperature 98.8 F 02/01/25 18:21 Pulse Rate 87 02/01/25 18:21 Respiratory Rate 16 02/01/25 18:21 Blood Pressure 125/76 02/01/25 18:21 Pulse Oximetry (%) 97 02/01/25 18:21 Oxygen Delivery Method Room Air 02/01/25 18:21 [facility] Narrative: Epigastric pain with n/v/d since 0400 this morning. Patient took a norco dredge captain with some relief.
--- NOTE | 2025-02-01 18:31 | PD.EDRME ---
Rapid Medical Screening Exam [facility] Arrival date/time: 02/01/25 17:49 Chief Complaint: Abdominal Pain Vital signs: Vital Signs Temperature 98.8 F 02/01/25 18:21 Pulse Rate 87 02/01/25 18:21 Respiratory Rate 16 02/01/25 18:21 Blood Pressure 125/76 02/01/25 18:21 Pulse Oximetry (%) 97 02/01/25 18:21 Oxygen Delivery Method Room Air 02/01/25 18:21 [facility] Narrative: Epigastric pain with n/v/d since 0400 this morning. Patient took a norco station captain with some relief.
[2025-02-01] MEDS: ONDANSETRON ODT 4 MG TABRAP PO (18:42)
[2025-02-01] MEDS: MG HYD/AL HYD/SIME (Maalox Reg) SUSP 30 ML UDC PO (18:42)
[2025-02-01] MEDS: FAMOTIDINE 20 MG TABLET 40 MG PO (18:43)
[2025-02-01] MEDS: KETOROLAC INJ 60 MG/2 ML VIAL 30 MG IM (18:45)
[2025-02-01 19:19] LABS: Basophils % (Auto) 0 % (0-2.5); Eosinophils # (Auto) 0.2 Thou/mm3 (0.0-0.5); Eosinophils % (Auto) 2 % (0-10); Hematocrit 37.7 % (36.0-46.0); Hemoglobin 12.7 g/dL (12.0-16.0); Immature Granulocytes % (Auto) 0 % (0-0); Immature Granulocytes Auto 0.04 Thou/mm3 (0.00-0.00); Lymphocytes # (Auto) 3.4 Thou/mm3 (1.0-4.8); Lymphocytes % (Auto) 34 % (10-50); Mean Corpuscular HGB Conc 33.7 g/dl (31.0-37.0); Mean Corpuscular Hemoglobin 29.7 pg (25.0-35.0); Mean Corpuscular Volume 88 fL (80-100); Monocytes # (Auto) 0.8 Thou/mm3 (0.0-0.8); Monocytes % (Auto) 8 % (0-12); Neutrophils # (Auto) 5.7 Thou/mm3 (1.8-7.7); Neutrophils % (Auto) 57 % (37-80); Nucleated Red Blood Cell % 0 /100 WBC (0); Platelet Count 264 Thou/mm3 (140-440); RDW Standard Deviation 47.5 fL (36.4-46.3); Red Blood Count 4.27 Miln/mm3 (4.00-5.20)
[2025-02-01 19:40] LABS: Alanine Aminotransferase 21 U/L (10-49); Albumin, Serum 4.3 gm/dL (3.4-4.8); Alkaline Phosphatase 82 U/L (46-116); Anion Gap 9 (7-16); Aspartate Amino Transferase 26 U/L (0-34); BUN/Creatinine Ratio 18 Ratio (12-20); Bilirubin,Total 0.3 mg/dL (0.3-1.2); Blood Urea Nitrogen 16 mg/dL (9-23); Calcium 9.6 mg/dL (8.3-10.6); Calcium (Corrected) 9.6 mg/dL (8.5-10.1); Carbon Dioxide 22.4 mMol/L (20.0-31.0); Chloride 107 mMol/L (98-107); Creatinine (Component) 0.9 mg/dL (0.6-1.3); Estimated Creatinine Clearance 53.9 mL/min (>60); Globulin 2.1 gm/dL (2.3-3.5); Glucose 158 mg/dL (74-106); Lipase 47 U/L (12-53); Osmolality,Calculated 279 (275-295); Potassium 4.1 mMol/L (3.4-5.1); Sodium 138 mMol/L (136-145); Total Protein 6.4 gm/dL (5.7-8.2); Troponin I < 0.020 ng/mL (0.0-0.045); eGFR > 60 See Note
[2025-02-01 19:51] LABS: Collection Type, Urine Clean Catch
[2025-02-01 19:59] LABS: Bilirubin,Urine 1+ (Negative); Blood,Urine Negative (Negative); Clarity,Urine Clear (Clear/Hazy); Color,Urine Drk-Yellow (Lt Yel-Yel); Glucose, Urine Negative (Negative); Ketones,Urine Negative (Negative); Leukocyte Esterase,Urine Negative (Negative); Nitrite,Urine Positive (Negative); Protein,Urine Negative (Neg - Trace); RBC,Urine 3 /hpf (0-3); Specific Gravity,Urine 1.017 (1.001-1.035); Squamous Epithelial Cell,Urine 1 /hpf (0-5); WBC,Urine 7 /hpf (0-5)
--- NOTE | 2025-02-01 20:20 | PD.EDABDPN ---
ED Abdominal Pain RME/HPI General Chief Complaint: Abdominal Pain Stated complaint: ABD PAIN SINCE 1630 TODAY Time seen by provider: 02/01/25 20:20 Arrival date/time: 02/01/25 17:49 Source: patient, family, RN notes reviewed and old records reviewed Mode of arrival: ambulatory Limitations: no limitations RME / HPI RME / HPI narrative: 69yof presents to ED for epigastric pain that initiated at 0400 this morning. Patient reports nausea, vomiting, diarrhea since onset. No known sick contacts or suspected food poisoning. No fever, sob, cp or urinary symptoms reported. Patient took a norco relief captain with some relief. Related Data Home Medications ?Medication ?Instructions ?Recorded ?Confirmed levothyroxine 100 mcg tablet 100 mcg PO QDAY 05/26/20 01/07/25 lisinopril 10 mg tablet 5 mg PO QDAY 05/26/20 01/07/25 metformin 500 mg tablet 500 mg PO BID 05/26/20 01/07/25 Held on 02/17/23. Instructions: Resume on 02/19/23. Resume Metformin in 48 hours omeprazole 20 mg capsule,delayed 20 mg PO QDAY 04/02/21 01/07/25 release calcium 600 mg (as 1 tab PO QDAY 02/17/23 01/07/25 carbonate)-vitamin D3 10 mcg (400 unit) tablet folic acid 1 mg tablet 1 mg PO QDAY 02/17/23 01/07/25 nitrofurantoin 100 mg PO BID 03/25/24 01/07/25 monohydrate/macrocrystals 100 mg capsule (Macrobid) estradiol 0.01% (0.1 mg/gram) 2 g vaginal DIRECTED 07/02/24 01/07/25 vaginal cream (Estrace) Previous Rx's ?Medication ?Instructions ?Recorded acetaminophen-caffeine 500 mg-65 1 tab PO Q8H PRN pain #30 tabs 01/14/25 mg tablet (Excedrin Tension Headache) famotidine 40 mg tablet (Pepcid) 40 mg PO QDAY #30 tabs 02/01/25 ondansetron 4 mg disintegrating 4 mg PO Q6H PRN nausea and 02/01/25 tablet vomiting #10 tabs Allergies Allergy/AdvReac Type Severity Reaction Status Date / Time No Known Allergies Allergy Verified 06/28/25 17:51 Review of Systems Review of Systems Systems Reviewed: All systems reviewed, normal except as documented Constitutional Constitutional: Denies fever(s) Cardiovascular Cardiovascular: Denies chest pain and Denies dyspnea Respiratory Respiratory: Denies dyspnea Gastrointestinal Gastrointestinal: Reports abdominal pain, Reports loose stools, Reports nausea and Reports vomiting Genitourinary Genitourinary: Denies dysuria and Denies flank pain Past Medical History Past Medical History CARDIAC: Positive Hypercholesterolemia and Hypertension GASTROINTESTINAL: Positive Gastrointestinal Disorders, Gall Bladder Disease and Gastroesophageal Reflux Disease REPRODUCTIVE: Positive Previous Pregnancies MUSCULOSKELETAL: Positive Musculoskeletal Disorders and Arthritis ENDOCRINE: Positive Endocrine Disorders and Hypothyroidism Family History FAMILY HISTORY: Positive Family Psychiatric Problems, Family Cardiac Disorders and Family Surgery Surgical History SURGICAL: Positive Cardiac Surgery, Angiogram, Thyroidectomy, Ear Surgery, Arthroscopy and Hysterectomy Social History SMOKING STATUS: Never smoker SUBSTANCE USE: does not use ED Exam General Limitations: Present no limitations General appearance: Present alert and in no apparent distress Head Head exam: Present atraumatic and normocephalic Eye Eye exam: Present normal appearance, PERRL and EOMI ENT ENT exam: Present normal exam and mucous membranes moist Neck Neck exam: Present normal inspection and full ROM Chest Chest inspection: Present normal inspection and symmetric chest wall rise Respiratory Respiratory exam: Present normal lung sounds bilaterally; Absent respiratory distress Cardiovascular Cardiovascular exam: Present regular rate and normal rhythm Abdominal Exam Abdominal exam: Present soft and tenderness (epigastric, mild); Absent distention, guarding or rebound Extremities Exam Extremities exam: Present normal inspection and full ROM Back Exam Back exam: Absent CVA tenderness (R) or CVA tenderness (L) Neurological Exam Neurological exam: Present alert and oriented X3 Psychiatric Psychiatric exam: Present normal affect and normal mood Skin Skin exam: Present warm, dry, intact and normal color Course Quality Measures none Orders Category Date Time Status EKG (ED ONLY) *Do not use* NOW Care 02/01/25 18:30 Completed EKG (ED Only) Stat Exams 02/01/25 18:30 Draft CBC Stat Lab 02/01/25 18:57 Completed CMP [Comprehensive Metabolic Panel] Stat Lab 02/01/25 18:57 Completed Lipase Stat Lab 02/01/25 18:57 Completed Troponin I Stat Lab 02/01/25 18:57 Completed UA [Urinalysis] Stat Lab 02/01/25 19:40 Completed Famotidine [Pepcid] Med 02/01/25 18:31 Discontinued 40 mg PO X1 ONE Ketorolac Inj [Toradol Inj] Med 02/01/25 18:30 Discontinued 30 mg IM X1 ONE Ondansetron Odt [Zofran Odt] Med 02/01/25 18:30 Discontinued 4 mg PO X1 ONE mg Hyd/Al Hyd/Lenore Susp [Maalox Susp] Med 02/01/25 18:30 Discontinued 30 ml PO X1 ONE Vital Signs Vital signs: Vital Signs Temperature 98.8 F 02/01/25 18:21 Pulse Rate 87 02/01/25 18:21 Respiratory Rate 16 02/01/25 18:21 Blood Pressure 125/76 02/01/25 18:21 Pulse Oximetry (%) 97 02/01/25 18:21 Oxygen Delivery Method Room Air 02/01/25 18:21 PROCEDURES: EKG Interpretation #1: Date of EK02/01/25 Rate: 85 Interpretation: Interpreted by me EKG Impression: Normal sinus rhythm, No acute ST-T changes, No ectopy, No ischemic changes, Normal QRS, Normal intervals and Normal axis Abdominal Pain MDM MDM Narrative MDM Narrative:: 69yof presents to ED for epigastric pain that initiated at 0400 this morning. Patient reports nausea, vomiting, diarrhea since onset. No known sick contacts or suspected food poisoning. No fever, sob, cp or urinary symptoms reported. Patient took a norco relief captain with some relief. Patient reassessed. Symptoms improved after medications administered. ED workup and exam reassuring. Encouraged adequate fluids, symptomatic treatment prn. Stable for dc, RTED precautions given. Patient data External records reviewed:: [facility] previous records (01/14/25 ED visit for headache) Clinical information provided by:: patient and family Social determinants that could affect healthcare access:: none Patient has the following chronic illnesses:: GERD How is presenting disease/condition affected by chronic disease/condition?: exacerbated by Evaluation data The following diagnostics were reviewed and interpreted by me:: lab results, radiology exam(s) and EKG tracing(s) Lab and/or radiology exams considered but not ordered:: CT abd/pelvis: non-surgical abdomen on exam Interpretation Summary: No leukocytosis Negative trop UA -leuks LFTs and lipase wnl Medications / Prescriptions Medications or Prescriptions considered but not ordered:: no antibiotics recommended at this time Medication administrations:: Medication Administration History Discontinued Medications Al Hydrox/Mg Hydrox/Simethicone (Mg Hyd/Al Hyd/Lenore (Maalox Reg) Susp 30 Ml Udc) 30 ml PO X1 ONE Stop: 02/01/25 18:31 Last Admin: 02/01/25 18:42 Dose: 30 ml Documented By: Famotidine (Famotidine 20 Mg Tablet) 40 mg PO X1 ONE Stop: 02/01/25 18:32 Last Admin: 02/01/25 18:43 Dose: 40 mg Documented By: Ketorolac Tromethamine (Ketorolac Inj 60 Mg/2 Ml Vial) 30 mg IM X1 ONE Stop: 02/01/25 18:31 Last Admin: 02/01/25 18:45 Dose: 30 mg Documented By: Ondansetron HCl (Ondansetron Odt 4 Mg Tabrap) 4 mg PO X1 ONE; Protocol Stop: 02/01/25 18:31 Last Admin: 02/01/25 18:42 Dose: 4 mg Documented By: above medications administered in ED Consultations Consultation(s) initiated? (list below): No Diagnosis Differential diagnosis abdominal pain: abdominal pain, calculus of kidney, constipation, gastroenteritis, pancreatitis and other (gastritis, GERD) Most likely diagnosis given after review of the tests above:: Epigastric pain Admission Indicated Admission indicated?: not indicated Admission Request Was there a request for admission?: No Disposition Plan Disposition Plan: Discharge Discharge Attestation Discharge Attestation: The patient and all family members were given an opportunity to ask questions and understood the discharge instructions. Discharge instructions specifically effects, indications for sooner follow up or return to the emergency department, and the expected course of current diagnosis. Patient condition: Stable Discharge Plan Plan Patient Disposition: HOME (Self Care) Patient condition on transfer: Stable Prescriptions/Referrals Prescriptions/Med Rec: New famotidine [Pepcid] 40 mg tablet 40 mg PO QDAY Qty: 30 0RF ondansetron 4 mg tablet,disintegrating 4 mg PO Q6H PRN (Reason: nausea and vomiting) Qty: 10 0RF No Action nitrofurantoin monohyd/m-cryst [Macrobid] 100 mg capsule 100 mg PO BID Rx Instructions: must administer with a meal/food lidocaine HCl [Xylocaine] 10 mg/mL (1 %) solution 20 ml Infiltration X1 Qty: 20 0RF triamcinolone acetonide 40 mg/mL suspension 40 mg intra-articular X1 Qty: 1 0RF estradiol [Estrace] 0.01 % (0.1 mg/gram) cream 2 g vaginal DIRECTED Patient Comments: twice a week metformin 500 mg Tablet 500 mg PO BID levothyroxine 100 mcg Tablet 100 mcg PO QDAY lisinopril 10 mg Tablet 5 mg PO QDAY omeprazole 20 mg capsule,delayed release(DR/EC) 20 mg PO QDAY Patient Comments: TAKE 1 CAPSULE BY MOUTH EVERY DAY 30 MINUTES TO 1 HOUR BEFORE A MEAL folic acid 1 mg tablet 1 mg PO QDAY Patient Comments: TAKE 1 TABLET BY MOUTH EVERY DAY calcium carbonate-vitamin D3 600 mg-10 mcg (400 unit) tablet 1 tab PO QDAY Patient Comments: TAKE ONE TABLET VIA ORAL ROUTE ONCE A DAY. Excedrin Tension Headache 500-65 mg tablet 1 tab PO Q8H PRN (Reason: pain) Qty: 30 0RF Referrals: Purnima Duff FNP [Primary Care Provider] - In 1 week Problem List Clinical Impression: Epigastric abdominal pain, Nausea, vomiting and diarrhea Patient/Caregiver Discharge Instructions Education Materials: ED Epigastric Pain (Uncertain Cause), ED Vomiting and Diarrhea ... Print Language: Italian Stand Alone Forms: [employer] Award Info., Patient Portal Info Letter SHANE/VALVE ASSEMBLER Supervising Physician SHANE/VALVE ASSEMBLER Supervising Physician: Suni
[2025-02-01 20:26] VITALS: RESP 16
== END 2025-02-01 20:27 | disposition home or self-care (01) ==
PROVIDERS: Physician Assistant; Emergency Provider Emergency Medicine; PCP Nurse Practitioner Family
DX: R10.13 Epigastric pain (principal); R11.2 Nausea with vomiting, unspecified; R19.7 Diarrhea, unspecified; R94.31 Abnormal electrocardiogram [ECG] [EKG]
CPT/HCPCS: 36415; 80053; 81001; 83690; 84484; 85025; 93005; 96372; 99283; J1885; Q0162; A9270

== ENCOUNTER 2025-03-30 08:17 | Emergency (ER) | payer MEDICARE, MEDICAID, SELFPAY ==
[2025-03-30 08:18] VITALS: BMI 29.2
[2025-03-30 08:26] VITALS: BP 136/92; PULSE 73; RESP 19; TEMP 37.2; O2SAT 96
--- NOTE | 2025-03-30 08:37 | XR_ITS ---
Examination: AP chest single view. Technique: AP portable upright chest single view. Date and time: March 30, 2025, 0918 hrs., Comparison September 09, 2024. Indications: Chest pain coughing today. Findings: Normal heart size. No pneumonia or pulmonary edema. Prominent osteopenia. Impression: No pneumonia or pulmonary edema.
--- NOTE | 2025-03-30 08:39 | PD.EDRME ---
Rapid Medical Screening Exam [facility] Arrival date/time: 03/30/25 08:17 Chief Complaint: Shortness of Breath/Dyspnea Time Seen by Provider: 03/30/25 08:22 Vital signs: Vital Signs Temperature 99.0 F 03/30/25 08:26 Pulse Rate 73 03/30/25 08:26 Respiratory Rate 19 03/30/25 08:26 Blood Pressure 136/92 H 03/30/25 08:26 Pulse Oximetry (%) 96 03/30/25 08:26 Oxygen Delivery Method Room Air 03/30/25 08:26 Vital signs reviewed by provider: Yes RME Narrative: Patient is a 70-year-old female is in the emerged from concerns for chest pain and cough. Patient has a history of angina, hypertension, diabetes, GERD. States that her symptoms started yesterday, chest pain started retrosternal that radiates to the back. Also endorses shortness of breath. Denies recent travel sick contacts. Allergies to medications. No smoking alcohol.
[2025-03-30] MEDS: ACETAMINOPHEN 325 MG TABLET 650 MG PO (08:45)
--- NOTE | 2025-03-30 09:08 | PD.EDSOB ---
ED SOB =RME/HPI General Chief Complaint: Shortness of Breath/Dyspnea Stated Complaint: DIFF BREATHING FOR 2 DAYS WITH BACK PAIN Time Seen by Provider: 03/30/25 08:22 Arrival date/time: 03/30/25 08:17 Limitations: no limitations RME / HPI RME / HPI Narrative: Patient is a 70-year-old female is in the emerged from concerns for chest pain and cough. Patient has a history of angina, hypertension, diabetes, GERD. States that her symptoms started yesterday, chest pain started retrosternal that radiates to the back. Also endorses shortness of breath. Denies recent travel sick contacts. Allergies to medications. No smoking alcohol. DR. ANGELINA CANTU ED EVALUATION 70 year old female with history of angina, hypertension, diabetes, hypothyroidism, GERD presents to the ED for evaluation of left sided chest pain (just below the breast) with radiation to her back beginning 2 days ago and worsening this morning. Accompanied by feeling short of breath and sweating. Reportedly had experienced similar pain earlier this week and consulted her organ teacher. States during her appointment her organ teacher advised the pain is due to spasms and not her heart. Patient states she was prescribed medication (Diltiazem 120mg QDAY) which provided relief. However, in the last 2 days medication is not providing much relief. Denies taking medication today. Denies fevers, chills, cough, abdominal pain, n/v. Related Data Home Medications ?Medication ?Instructions ?Recorded ?Confirmed levothyroxine 100 mcg tablet 100 mcg PO QDAY 05/26/20 01/07/25 lisinopril 10 mg tablet 5 mg PO QDAY 05/26/20 01/07/25 metformin 500 mg tablet 500 mg PO BID 05/26/20 01/07/25 Held on 02/17/23. Instructions: Resume on 02/19/23. Resume Metformin in 48 hours omeprazole 20 mg capsule,delayed 20 mg PO QDAY 04/02/21 01/07/25 release calcium 600 mg (as 1 tab PO QDAY 02/17/23 01/07/25 carbonate)-vitamin D3 10 mcg (400 unit) tablet folic acid 1 mg tablet 1 mg PO QDAY 02/17/23 01/07/25 nitrofurantoin 100 mg PO BID 03/25/24 01/07/25 monohydrate/macrocrystals 100 mg capsule (Macrobid) estradiol 0.01% (0.1 mg/gram) 2 g vaginal DIRECTED 07/02/24 01/07/25 vaginal cream (Estrace) Previous Rx's ?Medication ?Instructions ?Recorded acetaminophen-caffeine 500 mg-65 1 tab PO Q8H PRN pain #30 tabs 01/14/25 mg tablet (Excedrin Tension Headache) famotidine 40 mg tablet (Pepcid) 40 mg PO QDAY #30 tabs 02/01/25 ondansetron 4 mg disintegrating 4 mg PO Q6H PRN nausea and 02/01/25 tablet vomiting #10 tabs Allergies Allergy/AdvReac Type Severity Reaction Status Date / Time No Known Allergies Allergy Verified 03/30/25 08:20 Review of Systems Review of Systems Systems Reviewed: All systems reviewed, normal except as documented Past Medical History Past Medical History CARDIAC: Positive Hypercholesterolemia and Hypertension GASTROINTESTINAL: Positive Gastrointestinal Disorders, Gall Bladder Disease and Gastroesophageal Reflux Disease REPRODUCTIVE: Positive Previous Pregnancies MUSCULOSKELETAL: Positive Musculoskeletal Disorders and Arthritis ENDOCRINE: Positive Endocrine Disorders, Diabetes Mellitus Type 2 and Hypothyroidism Family History FAMILY HISTORY: Positive Family Psychiatric Problems, Family Cardiac Disorders and Family Surgery Surgical History SURGICAL: Positive Cardiac Surgery, Angiogram, Thyroidectomy, Ear Surgery, Arthroscopy and Hysterectomy; Negative Pacemaker or Joint Replacement Social History SMOKING STATUS: Never smoker SUBSTANCE USE: does not use ED Exam General Limitations: Present no limitations General appearance: Present alert and other (Mild active cough ) Head Head exam: Present atraumatic, normocephalic and normal inspection Eye Eye exam: Present normal appearance, PERRL and EOMI ENT ENT exam: Present normal exam, normal oropharynx and mucous membranes moist Neck Neck exam: Present normal inspection, full ROM and trachea midline Chest Chest inspection: Present normal inspection and symmetric chest wall rise Respiratory Respiratory exam: Present normal lung sounds bilaterally Cardiovascular Cardiovascular exam: Present regular rate, normal rhythm and normal heart sounds Abdominal Exam Abdominal exam: Present soft and normal bowel sounds Extremities Exam Extremities exam: Present normal inspection and full ROM Back Exam Back exam: Present normal inspection and full ROM Neurological Exam Neurological exam: Present alert, oriented X3 and CN II-XII intact Psychiatric Psychiatric exam: Present normal affect and normal mood Skin Skin exam: Present warm, dry, intact and normal color Course Quality Measures none Orders Category Date Time Status Bedside COVID-19 Antigen Test NOW Care 03/30/25 08:37 Active Bedside Influenza A&B Antigen Test NOW Care 03/30/25 08:37 Completed EKG (ED ONLY) *Do not use* NOW Care 03/30/25 11:41 Completed Miscellaneous Nursing Order NOW Care 03/30/25 10:47 Active CXR1 [XR chest 1V] Stat Exams 03/30/25 08:37 Completed EKG (ED Only) Stat Exams 03/30/25 09:17 Draft EKG (ED Only) Stat Exams 03/30/25 11:41 Draft CBC Stat Lab 03/30/25 09:28 Completed CMP [Comprehensive Metabolic Panel] Stat Lab 03/30/25 09:28 Completed D-Dimer Stat Lab 03/30/25 09:28 Completed Troponin I Stat Lab 03/30/25 09:28 Completed Troponin I Stat Lab 03/30/25 11:05 Completed Acetaminophen Tab [Tylenol Tab] Med 03/30/25 08:37 Discontinued 650 mg PO X1 ONE Diltiazem Cd [Cardizem Cd] Med 03/30/25 09:42 Discontinued 120 mg PO X1 ONE Morphine Inj Med 03/30/25 09:21 Discontinued 2 mg IVP Q30M PRN Ondansetron Inj [Zofran Inj] Med 03/30/25 09:21 Discontinued 4 mg IVP X1 ONE mg Hyd/Al Hyd/Lenore Susp [Maalox Susp] Med 03/30/25 12:18 Discontinued 30 ml PO X1 ONE Vital Signs Vital signs: Vital Signs Temperature 99.0 F 03/30/25 08:26 Pulse Rate 73 03/30/25 08:26 Respiratory Rate 19 03/30/25 08:26 Blood Pressure 136/92 H 03/30/25 08:26 Pulse Oximetry (%) 96 03/30/25 08:26 Oxygen Delivery Method Room Air 03/30/25 08:26 Pulse ox is 96% on room air which is adequate. Shortness of Breath / Dyspnea MDM Narrative MDM Narrative:: Shantel Lopez am scribing for and in the presence of Dr. Stevenson. 1138h: Patient is complaining of severe chest pain, repeat EKG ordered. 1215h: We reviewed all the results, analysis, and treatment plans. Patient is amenable to discharge. Strict return precautions were outlined. Patient was discharged in stable condition. Patient data External records reviewed:: [facility] previous records (I reviewed ED visit on 02/01/2025 ) Clinical information provided by:: patient Social determinants that could affect healthcare access:: none Patient has the following chronic illnesses:: angina, hypertension, diabetes, hypothyroidism, GERD How is presenting disease/condition affected by chronic disease/condition?: exacerbated by Evaluation data The following diagnostics were reviewed and interpreted by me:: lab results and EKG tracing(s) (EKG #1: 03/30/2025 @ 09:41h. NSR, rate 66, normal axis, no ectopy, no acute ischemia. EKG #2 @ 11:54 AM. NSR, HR 61, normal axis, no ectopy, no acute ischemia) Lab and/or radiology exams considered but not ordered:: None Interpretation Summary: Chest xray my interpretation, mildly rotated, unchanged from prior xrays, no acute process. Medications / Prescriptions Medications or Prescriptions considered but not ordered:: None Medication administrations:: Medication Administration History Discontinued Medications Acetaminophen (Acetaminophen 325 Mg Tablet) 650 mg PO X1 ONE Stop: 03/30/25 08:38 Last Admin: 03/30/25 08:45 Dose: 650 mg Documented By: YASMINE Al Hydrox/Mg Hydrox/Simethicone (Mg Hyd/Al Hyd/Lenore (Maalox Reg) Susp 30 Ml Udc) 30 ml PO X1 ONE Stop: 03/30/25 12:19 Diltiazem HCl (Diltiazem Cd 120 Mg Capcr) 120 mg PO X1 ONE Stop: 03/30/25 09:43 Last Admin: 03/30/25 10:10 Dose: 120 mg Documented By: YASMINE Morphine Sulfate (Morphine Sulf Inj 10 Mg/Ml Vial) 2 mg IVP Q30M PRN PRN Reason: PAIN Stop: 04/04/25 09:20 Last Admin: 03/30/25 11:52 Dose: 2 mg Documented By: Admin: 03/30/25 10:39 Dose: 2 mg Documented By: Admin: 03/30/25 09:38 Dose: 2 mg Documented By: YASMINE Ondansetron HCl (Ondansetron Inj 2 Mg/Ml Inj 2 Ml) 4 mg IVP X1 ONE; Protocol Stop: 03/30/25 09:22 Last Admin: 03/30/25 09:38 Dose: 4 mg Documented By: YASMINE See above Consultations Consultation(s) initiated? (list below): Yes Consultation #1 (Physician, Specialty, Details): I spoke with organ teacher Dr. Dhillon. Discussed patients PMHx, HPI, ED course, exam findings, labs, and radiology results. Time: 12:34 Diagnosis Shortness of Breath Differential Diagnosis: acute exacerbation of chronic obstructive airways disease, congestive heart failure, community acquired pneumonia, asthma with exacerbation and other (viral illness ) Most likely diagnosis given after review of the tests above:: Chest pain Admission Indicated Admission indicated?: not indicated Admission Request Was there a request for admission?: No Disposition Plan Disposition Plan: Discharge Discharge Attestation Discharge Attestation: The patient and all family members were given an opportunity to ask questions and understood the discharge instructions. Discharge instructions specifically effects, indications for sooner follow up or return to the emergency department, and the expected course of current diagnosis. Patient condition: Stable Discharge Plan Plan Patient Disposition: HOME (Self Care) Discharge Disposition comment: Stable for discharge home Patient condition on transfer: Stable Prescriptions/Referrals Prescriptions/Med Rec: No Action nitrofurantoin monohyd/m-cryst [Macrobid] 100 mg capsule 100 mg PO BID Rx Instructions: must administer with a meal/food lidocaine HCl [Xylocaine] 10 mg/mL (1 %) solution 20 ml Infiltration X1 Qty: 20 0RF triamcinolone acetonide 40 mg/mL suspension 40 mg intra-articular X1 Qty: 1 0RF estradiol [Estrace] 0.01 % (0.1 mg/gram) cream 2 g vaginal DIRECTED Patient Comments: twice a week metformin 500 mg Tablet 500 mg PO BID levothyroxine 100 mcg Tablet 100 mcg PO QDAY lisinopril 10 mg Tablet 5 mg PO QDAY omeprazole 20 mg capsule,delayed release(DR/EC) 20 mg PO QDAY Patient Comments: TAKE 1 CAPSULE BY MOUTH EVERY DAY 30 MINUTES TO 1 HOUR BEFORE A MEAL folic acid 1 mg tablet 1 mg PO QDAY Patient Comments: TAKE 1 TABLET BY MOUTH EVERY DAY calcium carbonate-vitamin D3 600 mg-10 mcg (400 unit) tablet 1 tab PO QDAY Patient Comments: TAKE ONE TABLET VIA ORAL ROUTE ONCE A DAY. Excedrin Tension Headache 500-65 mg tablet 1 tab PO Q8H PRN (Reason: pain) Qty: 30 0RF famotidine [Pepcid] 40 mg tablet 40 mg PO QDAY Qty: 30 0RF ondansetron 4 mg tablet,disintegrating 4 mg PO Q6H PRN (Reason: nausea and vomiting) Qty: 10 0RF Referrals: Purnima Duff FNP [Primary Care Provider] - In 1 week Clary Dhillon MD [Physician] - In 1 week Problem List Clinical Impression: Chest pain Patient/Caregiver Discharge Instructions Discharge Activity: activity as tolerated Other Activity Instructions:: As tolerated Diet Instructions: No restrictions Education Materials: ED Chest Pain, Uncertain Cause Additional Instructions: Today you were seen in the emergency department for chest pain. All of your EKGs and your blood work were normal. You are not having a heart attack. Your chest x-ray was normal as well. It is important that you return to the ER if you have any further pain or any worsening and we will help you. Otherwise you should follow-up with Dr. Dhillon in his office within the next several days. Please call him in the morning and make an appointment Print Language: Swiss Stand Alone Forms: [employer] Award Info., Patient Portal Info Letter
--- NOTE | 2025-03-30 09:17 | EKG_ITS ---
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
[2025-03-30] MEDS: MORPHINE SULF INJ 10 MG/ML VIAL 2 MG IVP ×3 (09:38→11:52)
[2025-03-30] MEDS: ONDANSETRON INJ 2 MG/ML INJ 2 ML 4 MG IVP (09:38)
[2025-03-30 10:01] LABS: Basophils # (Auto) 0.0 Thou/mm3 (0.0-0.2); Basophils % (Auto) 0 % (0-2.5); Eosinophils # (Auto) 0.2 Thou/mm3 (0.0-0.5); Eosinophils % (Auto) 2 % (0-10); Hematocrit 39.9 % (36.0-46.0); Hemoglobin 13.0 g/dL (12.0-16.0); Immature Granulocytes Auto 0.05 Thou/mm3 (0.00-0.00); Lymphocytes # (Auto) 1.8 Thou/mm3 (1.0-4.8); Lymphocytes % (Auto) 15 % (10-50); Mean Corpuscular HGB Conc 32.6 g/dl (31.0-37.0); Mean Corpuscular Hemoglobin 30.1 pg (25.0-35.0); Mean Corpuscular Volume 92 fL (80-100); Monocytes # (Auto) 0.8 Thou/mm3 (0.0-0.8); Monocytes % (Auto) 7 % (0-12); Neutrophils # (Auto) 8.7 Thou/mm3 (1.8-7.7); Neutrophils % (Auto) 76 % (37-80); Nucleated Red Blood Cell # 0.00 Thou/mm3 (0.00-0.00); Nucleated Red Blood Cell % 0 /100 WBC (0); Platelet Count 229 Thou/mm3 (140-440); RDW Standard Deviation 46.7 fL (36.4-46.3); Red Blood Count 4.32 Miln/mm3 (4.00-5.20); White Blood Count 11.5 Thou/mm3 (3.6-11.0)
[2025-03-30 10:08] LABS: Alanine Aminotransferase 12 U/L (10-49); Albumin, Serum 4.0 gm/dL (3.4-4.8); Albumin/Globulin Ratio 1.7 (1.2-2.2); Alkaline Phosphatase 74 U/L (46-116); Anion Gap 13 (7-16); Aspartate Amino Transferase 16 U/L (0-34); BUN/Creatinine Ratio 33 Ratio (12-20); Bilirubin,Total 0.4 mg/dL (0.3-1.2); Blood Urea Nitrogen 26 mg/dL (9-23); Calcium 10.1 mg/dL (8.3-10.6); Calcium (Corrected) 10.1 mg/dL (8.5-10.1); Carbon Dioxide 23.4 mMol/L (20.0-31.0); Chloride 107 mMol/L (98-107); Creatinine (Component) 0.8 mg/dL (0.6-1.3); Estimated Creatinine Clearance 62.5 mL/min (>60); Globulin 2.4 gm/dL (2.3-3.5); Glucose 93 mg/dL (74-106); Osmolality,Calculated 289 (275-295); Potassium 3.9 mMol/L (3.4-5.1); Sodium 143 mMol/L (136-145); Total Protein 6.4 gm/dL (5.7-8.2); Troponin I < 0.002 ng/mL (0.0-0.045); eGFR > 60 See Note
[2025-03-30 10:10] VITALS: BP 127/58; PULSE 61
[2025-03-30] MEDS: DILTIAZEM CD 120 MG CAPCR PO (10:10)
[2025-03-30 10:14] VITALS: BP 127/58; RESP 19; TEMP 36.9; O2SAT 97
[2025-03-30 10:22] LABS: D-Dimer < 250 ng/mL (<600)
--- NOTE | 2025-03-30 11:41 | EKG_ITS ---
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
[2025-03-30 11:49] VITALS: BP 127/70; PULSE 66; RESP 18; TEMP 36.8; O2SAT 98
[2025-03-30 12:04] LABS: Troponin I < 0.002 ng/mL (0.0-0.045)
[2025-03-30] MEDS: MG HYD/AL HYD/SIME (Maalox Reg) SUSP 30 ML UDC PO (12:43)
[2025-03-30 12:49] VITALS: BP 133/66; PULSE 64; RESP 18; TEMP 37.1; O2SAT 95
== END 2025-03-30 12:50 | disposition home or self-care (01) ==
PROVIDERS: Emergency Medicine; Emergency Provider Emergency Medicine; PCP Nurse Practitioner Family
DX: R07.9 Chest pain, unspecified (principal); K21.9 Gastro-esophageal reflux disease without esophagitis; I10 Essential (primary) hypertension; E11.9 Type 2 diabetes mellitus without complications; E03.9 Hypothyroidism, unspecified
CPT/HCPCS: 36415; 71045; 80053; 84484; 85025; 85379; 87400; 87811; 93005; 96374; 96375; 99283; J2270; J2405; A9270

== ENCOUNTER → 2025-04-11 | Outpatient (CLI) | payer MEDICARE, MEDICAID, SELFPAY ==
--- NOTE | 2025-04-11 09:27 | XR_ITS ---
Examination: PA lateral chest 2 views TECHNIQUE: Upright PA lateral chest 2 views Date and time: April 11, 2025 0934 hours, comparison March 30, 2025 INDICATIONS: Preop FINDINGS: Normal heart size. Lungs are clear. Prominent osteopenia IMPRESSION: No active disease
== END | disposition home or self-care (01) ==
PROVIDERS: PCP Nurse Practitioner Family; Referring Provider Nurse Practitioner Family; Visit Provider Nurse Practitioner Family
DX: R07.9 Chest pain, unspecified (principal); Z01.818 Encounter for other preprocedural examination
CPT/HCPCS: 71046

== ENCOUNTER → 2025-06-09 | Outpatient (CLI) | payer MEDICARE, MEDICAID, SELFPAY ==
[2025-06-09 08:05] LABS: Collection Type, Urine Clean Catch
[2025-06-09 08:37] LABS: Basophils # (Auto) 0.1 Thou/mm3 (0.0-0.2); Basophils % (Auto) 1 % (0-2.5); Eosinophils # (Auto) 0.2 Thou/mm3 (0.0-0.5); Eosinophils % (Auto) 2 % (0-10); Hematocrit 38.7 % (36.0-46.0); Hemoglobin 12.3 g/dL (12.0-16.0); Immature Granulocytes Auto 0.12 Thou/mm3 (0.00-0.00); Lymphocytes # (Auto) 3.7 Thou/mm3 (1.0-4.8); Lymphocytes % (Auto) 30 % (10-50); Mean Corpuscular HGB Conc 31.8 g/dl (31.0-37.0); Mean Corpuscular Hemoglobin 28.0 pg (25.0-35.0); Mean Corpuscular Volume 88 fL (80-100); Monocytes # (Auto) 1.1 Thou/mm3 (0.0-0.8); Monocytes % (Auto) 9 % (0-12); Neutrophils # (Auto) 7.2 Thou/mm3 (1.8-7.7); Neutrophils % (Auto) 58 % (37-80); Nucleated Red Blood Cell # 0.00 Thou/mm3 (0.00-0.00); Nucleated Red Blood Cell % 0 /100 WBC (0); Platelet Count 434 Thou/mm3 (140-440); RDW Standard Deviation 45.4 fL (36.4-46.3); Red Blood Count 4.40 Miln/mm3 (4.00-5.20); White Blood Count 12.4 Thou/mm3 (3.6-11.0)
[2025-06-09 08:42] LABS: Bacteria,Urine 3+; Bilirubin,Urine 1+ (Negative); Blood,Urine 2+ (Negative); Clarity,Urine Turbid (Clear/Hazy); Color,Urine Yellow (Lt Yel-Yel); Glucose, Urine Negative (Negative); Hyaline Casts,Urine < 1 /hpf (0-1); Ketones,Urine Negative (Negative); Leukocyte Esterase,Urine Positive (Negative); Nitrite,Urine Positive (Negative); PH,Urine 6.0 (5.0-7.0); Protein,Urine 1+ (Neg - Trace); RBC,Urine 25 /hpf (0-3); Specific Gravity,Urine 1.031 (1.001-1.035); Squamous Epithelial Cell,Urine 13 /hpf (0-5); Transitional Epi Cells,Urine 1 /hpf (0-5); Urobilinogen,Urine 2.0 mg/dL (0.0-1.0); WBC,Urine 189 /hpf (0-5)
[2025-06-09 09:04] LABS: Alanine Aminotransferase 9 U/L (10-49); Albumin, Serum 4.3 gm/dL (3.4-4.8); Albumin/Globulin Ratio 1.7 (1.2-2.2); Alkaline Phosphatase 95 U/L (46-116); Anion Gap 9 (7-16); Aspartate Amino Transferase 17 U/L (0-34); BUN/Creatinine Ratio 24 Ratio (12-20); Bilirubin,Total 0.3 mg/dL (0.3-1.2); Blood Urea Nitrogen 24 mg/dL (9-23); C-Reactive Protein < 0.5 mg/dL (0.0-0.9); Calcium 9.8 mg/dL (8.3-10.6); Calcium (Corrected) 9.8 mg/dL (8.5-10.1); Carbon Dioxide 26.1 mMol/L (20.0-31.0); Chloride 107 mMol/L (98-107); Creatinine (Component) 1.0 mg/dL (0.6-1.3); Globulin 2.6 gm/dL (2.3-3.5); Glucose 97 mg/dL (74-106); Osmolality,Calculated 287 (275-295); Potassium 4.1 mMol/L (3.4-5.1); Sodium 142 mMol/L (136-145); Total Protein 6.9 gm/dL (5.7-8.2); eGFR > 60 See Note
[2025-06-09 09:16] LABS: Sed Rate (ESR) 52 mm/hr (0-30)
[2025-06-09 15:36] LABS: RA Screen Positive (Negative)
[2025-06-09 15:44] LABS: Rheumatoid Factor Titer 1:512
[2025-06-13 14:20] LABS: ANA Screen, IFA NEGATIVE (NEGATIVE); CCP Antibody (IgG)* >250 Units
== END | disposition home or self-care (01) ==
LOC: COPL 07:06
PROVIDERS: PCP Nurse Practitioner Family; Referring Provider Nurse Practitioner Family; Visit Provider Nurse Practitioner Family
DX: M79.10 Myalgia, unspecified site (principal); M25.50 Pain in unspecified joint
CPT/HCPCS: 36415; 80053; 80069; 81001; 83970; 85025; 85652; 86038; 86140; 86200; 86430; 86431

== ENCOUNTER → 2025-07-14 | Outpatient (CLI) | payer MEDICARE, MEDICAID, SELFPAY ==
[2025-07-14 07:18] LABS: Coccid Serology, CF (UCD)* See Sep Rpt; Quantiferon-TB* See Sep Rpt
[2025-07-14 08:04] LABS: Basophils # (Auto) 0.0 Thou/mm3 (0.0-0.2); Basophils % (Auto) 0 % (0-2.5); Eosinophils # (Auto) 0.3 Thou/mm3 (0.0-0.5); Eosinophils % (Auto) 2 % (0-10); Hematocrit 37.5 % (36.0-46.0); Hemoglobin 11.7 g/dL (12.0-16.0); Immature Granulocytes Auto 0.11 Thou/mm3 (0.00-0.00); Lymphocytes # (Auto) 3.6 Thou/mm3 (1.0-4.8); Lymphocytes % (Auto) 28 % (10-50); Mean Corpuscular HGB Conc 31.2 g/dl (31.0-37.0); Mean Corpuscular Hemoglobin 26.9 pg (25.0-35.0); Mean Corpuscular Volume 86 fL (80-100); Monocytes # (Auto) 0.9 Thou/mm3 (0.0-0.8); Monocytes % (Auto) 7 % (0-12); Neutrophils # (Auto) 7.9 Thou/mm3 (1.8-7.7); Neutrophils % (Auto) 62 % (37-80); Nucleated Red Blood Cell # 0.00 Thou/mm3 (0.00-0.00); Nucleated Red Blood Cell % 0 /100 WBC (0); Platelet Count 399 Thou/mm3 (140-440); RDW Standard Deviation 46.3 fL (36.4-46.3); Red Blood Count 4.35 Miln/mm3 (4.00-5.20); White Blood Count 12.8 Thou/mm3 (3.6-11.0)
[2025-07-14 08:12] LABS: Alanine Aminotransferase 11 U/L (10-49); Albumin, Serum 3.9 gm/dL (3.4-4.8); Albumin/Globulin Ratio 1.3 (1.2-2.2); Alkaline Phosphatase 103 U/L (46-116); Anion Gap 11 (7-16); Aspartate Amino Transferase 15 U/L (0-34); BUN/Creatinine Ratio 30 Ratio (12-20); Bilirubin,Total 0.3 mg/dL (0.3-1.2); Blood Urea Nitrogen 27 mg/dL (9-23); C-Reactive Protein 3.6 mg/dL (0.0-0.9); Calcium 9.3 mg/dL (8.3-10.6); Calcium (Corrected) 9.4 mg/dL (8.5-10.1); Carbon Dioxide 25.4 mMol/L (20.0-31.0); Chloride 108 mMol/L (98-107); Creatinine (Component) 0.9 mg/dL (0.6-1.3); Globulin 3.1 gm/dL (2.3-3.5); Glucose 112 mg/dL (74-106); Osmolality,Calculated 292 (275-295); Potassium 4.0 mMol/L (3.4-5.1); Sodium 144 mMol/L (136-145); Total Protein 7.0 gm/dL (5.7-8.2); eGFR > 60 See Note
[2025-07-14 08:49] LABS: Sed Rate (ESR) 59 mm/hr (0-30)
[2025-07-14 09:06] LABS: Hepatitis A Antibody IgM Non Reactive (Non React); Hepatitis B Core Antibody IgM Non Reactive (Non React); Hepatitis B Surface Antigen Non Reactive (Non React); Hepatitis C Antibody Non Reactive (Non React)
== END | disposition home or self-care (01) ==
LOC: COPL 06:53
PROVIDERS: PCP Nurse Practitioner Family; Referring Provider Internal Medicine; Visit Provider Internal Medicine
DX: B37.9 Candidiasis, unspecified (principal); D50.9 Iron deficiency anemia, unspecified; E03.9 Hypothyroidism, unspecified; E11.9 Type 2 diabetes mellitus without complications; E66.9 Obesity, unspecified; E78.5 Hyperlipidemia, unspecified; F33.1 Major depressive disorder, recurrent, moderate; F41.9 Anxiety disorder, unspecified; G25.81 Restless legs syndrome; G31.84 Mild cognitive impairment of uncertain or unknown etiology; G43.019 Migraine without aura, intractable, without status migrainosus; G43.111 Migraine with aura, intractable, with status migrainosus; G47.00 Insomnia, unspecified; H01.001 Unspecified blepharitis right upper eyelid; H04.123 Dry eye syndrome of bilateral lacrimal glands; H05.013 Cellulitis of bilateral orbits; H10.13 Acute atopic conjunctivitis, bilateral; H60.313 Diffuse otitis externa, bilateral; H60.8X3 Other otitis externa, bilateral; H62.43 Otitis externa in other diseases classified elsewhere, bilateral; H66.93 Otitis media, unspecified, bilateral; I10 Essential (primary) hypertension; J18.9 Pneumonia, unspecified organism; J30.2 Other seasonal allergic rhinitis; K21.9 Gastro-esophageal reflux disease without esophagitis; K58.2 Mixed irritable bowel syndrome; K59.00 Constipation, unspecified; L29.9 Pruritus, unspecified; M05.9 Rheumatoid arthritis with rheumatoid factor, unspecified
CPT/HCPCS: 36415; 80053; 80074; 85025; 85652; 86140; 86171; 86480

== ENCOUNTER 2025-07-26 10:52 | Emergency (ER) | payer MEDICARE, MEDICAID, SELFPAY ==
--- NOTE | 2025-07-26 11:21 | PD.EDWEAK ---
ED Weakness RME/HPI General Chief complaint: Weakness Stated complaint: Weakness, dizziness X 5 days Time Seen by Provider: 07/26/25 11:20 Arrival date/time: 07/26/25 10:52 RME / HPI RME / HPI Narrative: See [facility] for Dr. Pederson's HPI Documentation. Related Data Home Medications ?Medication ?Instructions ?Recorded ?Confirmed levothyroxine 100 mcg tablet 100 mcg PO QDAY 05/26/20 01/07/25 lisinopril 10 mg tablet 5 mg PO QDAY 05/26/20 01/07/25 metformin 500 mg tablet 500 mg PO BID 05/26/20 01/07/25 Held on 02/17/23. Instructions: Resume on 02/19/23. Resume Metformin in 48 hours omeprazole 20 mg capsule,delayed 20 mg PO QDAY 04/02/21 01/07/25 release calcium 600 mg (as 1 tab PO QDAY 02/17/23 01/07/25 carbonate)-vitamin D3 10 mcg (400 unit) tablet folic acid 1 mg tablet 1 mg PO QDAY 02/17/23 01/07/25 nitrofurantoin 100 mg PO BID 03/25/24 01/07/25 monohydrate/macrocrystals 100 mg capsule (Macrobid) estradiol 0.01% (0.1 mg/gram) 2 g vaginal DIRECTED 07/02/24 01/07/25 vaginal cream (Estrace) Previous Rx's ?Medication ?Instructions ?Recorded acetaminophen-caffeine 500 mg-65 1 tab PO Q8H PRN pain #30 tabs 01/14/25 mg tablet (Excedrin Tension Headache) famotidine 40 mg tablet (Pepcid) 40 mg PO QDAY #30 tabs 02/01/25 ondansetron 4 mg disintegrating 4 mg PO Q6H PRN nausea and 02/01/25 tablet vomiting #10 tabs cefdinir 300 mg capsule 300 mg PO BID #14 caps 07/26/25 Allergies Allergy/AdvReac Type Severity Reaction Status Date / Time No Known Allergies Allergy Verified 07/26/25 10:57 Review of Systems Review of Systems Systems Reviewed: All systems reviewed, normal except as documented Past Medical History Past Medical History CARDIAC: Positive Hypercholesterolemia and Hypertension GASTROINTESTINAL: Positive Gastrointestinal Disorders, Gall Bladder Disease and Gastroesophageal Reflux Disease REPRODUCTIVE: Positive Previous Pregnancies MUSCULOSKELETAL: Positive Musculoskeletal Disorders and Arthritis ENDOCRINE: Positive Endocrine Disorders, Diabetes Mellitus Type 2 and Hypothyroidism Family History FAMILY HISTORY: Positive Family Psychiatric Problems, Family Cardiac Disorders and Family Surgery Surgical History SURGICAL: Positive Cardiac Surgery, Angiogram, Thyroidectomy, Ear Surgery, Arthroscopy and Hysterectomy ED Exam Narrative Physical exam: See MDM for Dr. Pederson's Physical Exam Documentation. Course Quality Measures none Orders Category Date Time Status Bedside COVID-19 Antigen Test NOW Care 07/26/25 11:21 Completed Bedside Influenza A&B Antigen Test NOW Care 07/26/25 11:21 Completed EKG (ED ONLY) *Do not use* NOW Care 07/26/25 11:22 Completed Saline [Insert IV] NOW Care 07/26/25 11:21 Completed Straight [In and Out Catheter] X1 Care 07/26/25 11:[address] head/brain wo con Stat Exams 07/26/25 11:22 Completed EKG (ED Only) Stat Exams 07/26/25 11:22 Draft XR chest 1V portable Stat Exams 07/26/25 11:22 Completed BNP [B-Type Natriuretic Peptide] Stat Lab 07/26/25 12:22 Completed Beta Hydroxybutyrate Stat Lab 07/26/25 12:22 Completed Bilirubin,Direct Stat Lab 07/26/25 12:22 Completed Blood Culture (Lab) Stat Lab 07/26/25 12:22 Results CBC Stat Lab 07/26/25 12:22 Completed CK [Creatine Kinase] Stat Lab 07/26/25 12:22 Completed CMP [Comprehensive Metabolic Panel] Stat Lab 07/26/25 12:22 Completed CRP [C-Reactive Protein] Stat Lab 07/26/25 12:22 Completed ESR [Sed Rate (ESR)] Stat Lab 07/26/25 12:22 Completed Free T3 Stat Lab 07/26/25 12:22 Completed Free T4 (Free Thyroxine) Stat Lab 07/26/25 12:22 Completed Hemoglobin A1C [Glycohemoglobin w (eAG)] Stat Lab 07/26/25 12:22 Completed Lactate (Lactic Acid) Stat Lab 07/26/25 12:22 Completed Magnesium Stat Lab 07/26/25 12:22 Completed Procalcitonin Stat Lab 07/26/25 12:22 Completed TSH [Thyroid Stimulating Hormone] Stat Lab 07/26/25 12:22 Completed Troponin I Stat Lab 07/26/25 12:22 Completed UA, C/S IF [Urinalysis, C/S if Indicated] Stat Lab 07/26/25 12:50 Completed Urine Culture Stat Lab 07/26/25 12:50 Completed VBG [Venous Blood Gas] Stat Lab 07/26/25 12:22 Completed Ringers Lactated 1000 ml [Lactated Ringers] 1,000 ml Med 07/26/25 11:22 Discontinued IV 1,000 mls/hr cefTRIAXone/D5w 1gm IV premix [Rocephin/D5w 1gm IV Med 07/26/25 14:42 Discontinued premix] 1 gm in 50 ml IV X1 Vital Signs Vital signs: Vital Signs Temperature 98.6 F 07/26/25 11:39 Pulse Rate 78 07/26/25 11:39 Respiratory Rate 18 07/26/25 11:39 Blood Pressure 112/73 07/26/25 11:39 Pulse Oximetry (%) 96 07/26/25 11:39 Oxygen Delivery Method Room Air 07/26/25 11:39 Weakness MDM Narrative MDM Narrative:: This section includes all my notes and documentations, including HPI, PE, and ED course. Raymundo Pederson MD HPI: 70 y/o female with HTN and Type II DM presents with generalized weakness and feeling faint x 5 days. No headache. No fever or chills. No chest pain or shortness of breath. No abdominal pain. No vomiting. No other complaints. ROS: All negative except as documented in HPI. Physical Exam: General: Alert and oriented. No acute distress. Eyes: Conjunctivae and lids clear. EOMI. PERRL. ENT: No nasal congestion. Pharynx normal. Tympanic membrane normal bilaterally. Neck: Supple. No carotid bruit. No JVD. Heart: RRR. Lungs: No respiratory distress. Good air movement. No rhonchi, wheezing, rales. Abdomen: Soft and nontender. Normal bowel sounds. No distension. No rebound or guarding. Back: No CVA tenderness. Legs: No clubbing, cyanosis, edema. Skin: Warm and dry. Neuro: Alert and oriented X 3. Cranial Nerves II-XII grossly intact. No peripheral motor deficits. I reviewed all diagnostic test results: My interpretation of the EKG is NSR (77 bpm) with no ST-T changes. My interpretation of the chest x-ray is NAD. My review of the head CT report is NAD. Blood tests remarkable for WBC 17.4, ESR 44. UA showed positive nitrite, leukocyte esterase, 10 WBC, and 3+ bacteria. Covid/Influenza negative. At this point, diagnoses include: Generalized weakness UTI Treatment here included: IVF Rocephin 1 g IV She felt much better. Recommended a trial of outpatient treatment. Based on my best medical judgment, made decision no further evaluation or treatment indicated at this time. Patient understands and agrees to the discharge instructions customized and printed, see below. Discharge instructions from Dr. Pederson: 1. After extensive evaluation, you have severe UTI (see attached handout). There is no life-threatening condition. Such as stroke or brain tumor or heart attack. 2. Take cefdinir to kill the germs causing the infection. 3. For good hydration, increase oral fluid and maintain clear urine. If dark or yellow, increase oral fluid. And eat regular nutritious meals. And physical activity every single day, despite weakness. Prolonged inactivity is terrible for your body. 4. See a private doctor on 07/29/2025 for recheck. Ask to review all test results and official radiology reports, to make sure you receive all necessary follow-ups and monitoring. Including final urine culture results from today to make sure cefdinir doesn't need to be changed due to resistance. Ask for help if you continue to be weak after your urine infection is treated. 5. Seek immediate medical care with worsening, fever, or with any concerns. Raymundo Pederson MD Patient data External records reviewed:: [facility] previous records (Reviewed prior ED records from 03/30/25. Patient was seen for Chest pain.) Clinical information provided by:: patient Social determinants that could affect healthcare access:: none Patient has the following chronic illnesses:: Hypercholesterolemia, Hypertension, Gall Bladder Disease, Gastroesophageal Reflux Disease, Arthritis, Diabetes Mellitus Type 2 and Hypothyroidism How is presenting disease/condition affected by chronic disease/condition?: exacerbated by Evaluation data The following diagnostics were reviewed and interpreted by me:: lab results, radiology exam(s) and EKG tracing(s) (My interpretation of the EKG: NSR (77 bpm) with no ST-T changes. Raymundo Pederson MD) Lab and/or radiology exams considered but not ordered:: None Interpretation Summary: I reviewed all diagnostic test results: My interpretation of the EKG is NSR (77 bpm) with no ST-T changes. My interpretation of the chest x-ray is NAD. My review of the head CT report is NAD. Blood tests remarkable for WBC 17.4, ESR 44. UA showed positive nitrite, leukocyte esterase, 10 WBC, and 3+ bacteria. Covid/Influenza negative. Medications / Prescriptions Medications or Prescriptions considered but not ordered:: None Medication administrations:: Medication Administration History Discontinued Medications Lactated Ringer's (Lactated Ringers) 1,000 mls @ 1,000 mls/hr IV .Q1H ONE Stop: 07/26/25 12:21 Last Infusion: 07/26/25 13:35 Dose: Infused Documented By: Admin: 07/26/25 12:35 Dose: 1,000 mls/hr Documented By: ANAY Ceftriaxone Sodium/Dextrose (Rocephin/D5w 1gm Iv Premix) 1 gm in 50 mls @ 100 mls/hr IV X1 ONE Stop: 07/26/25 15:11 Last Infusion: 07/26/25 15:32 Dose: Infused Documented By: Admin: 07/26/25 15:01 Dose: 100 mls/hr Documented By: ANAY IVF Rocephin 1 g IV Consultations Consultation(s) initiated? (list below): No Diagnosis Weakness Differential Diagnosis: acute myocardial infarction, anemia, hypoglycemia, hypothyroidism, rhabdomyolysis, sepsis and dehydration Most likely diagnosis given after review of the tests above:: Generalized weakness UTI Admission Indicated Admission indicated?: not indicated Explain why admission is indicated or not indicated:: With significant improvement and no condition needing emergent intervention, there was no indication for admission. Admission Request Was there a request for admission?: No Disposition Plan Disposition Plan: Discharge Discharge Attestation Discharge Attestation: The patient and all family members were given an opportunity to ask questions and understood the discharge instructions. Discharge instructions specifically effects, indications for sooner follow up or return to the emergency department, and the expected course of current diagnosis. Patient condition: Stable Discharge Plan Plan Patient Disposition: HOME (Self Care) Prescriptions/Referrals Prescriptions/Med Rec: New cefdinir 300 mg capsule 300 mg PO BID Qty: 14 0RF No Action nitrofurantoin monohyd/m-cryst [Macrobid] 100 mg capsule 100 mg PO BID Rx Instructions: must administer with a meal/food lidocaine HCl [Xylocaine] 10 mg/mL (1 %) solution 20 ml Infiltration X1 Qty: 20 0RF triamcinolone acetonide 40 mg/mL suspension 40 mg intra-articular X1 Qty: 1 0RF estradiol [Estrace] 0.01 % (0.1 mg/gram) cream 2 g vaginal DIRECTED Patient Comments: twice a week metformin 500 mg Tablet 500 mg PO BID levothyroxine 100 mcg Tablet 100 mcg PO QDAY lisinopril 10 mg Tablet 5 mg PO QDAY omeprazole 20 mg capsule,delayed release(DR/EC) 20 mg PO QDAY Patient Comments: TAKE 1 CAPSULE BY MOUTH EVERY DAY 30 MINUTES TO 1 HOUR BEFORE A MEAL folic acid 1 mg tablet 1 mg PO QDAY Patient Comments: TAKE 1 TABLET BY MOUTH EVERY DAY calcium carbonate-vitamin D3 600 mg-10 mcg (400 unit) tablet 1 tab PO QDAY Patient Comments: TAKE ONE TABLET VIA ORAL ROUTE ONCE A DAY. Excedrin Tension Headache 500-65 mg tablet 1 tab PO Q8H PRN (Reason: pain) Qty: 30 0RF famotidine [Pepcid] 40 mg tablet 40 mg PO QDAY Qty: 30 0RF ondansetron 4 mg tablet,disintegrating 4 mg PO Q6H PRN (Reason: nausea and vomiting) Qty: 10 0RF Problem List Clinical Impression: UTI (urinary tract infection) Patient/Caregiver Discharge Instructions Discharge Activity: activity as tolerated Education Materials: ED CYSTITIS Female Adult, ED Weakness (Uncertain Cause) Additional Instructions: Discharge instructions from Dr. Pederson: 1. After extensive evaluation, you have severe UTI (see attached handout). There is no life-threatening condition. Such as stroke or brain tumor or heart attack. 2. Take cefdinir to kill the germs causing the infection. 3. For good hydration, increase oral fluid and maintain clear urine. If dark or yellow, increase oral fluid. And eat regular nutritious meals. And physical activity every single day, despite weakness. Prolonged inactivity is terrible for your body. 4. See a private doctor on 07/29/2025 for recheck. Ask to review all test results and official radiology reports, to make sure you receive all necessary follow-ups and monitoring. Including final urine culture results from today to make sure cefdinir doesn't need to be changed due to resistance. Ask for help if you continue to be weak after your urine infection is treated. 5. Seek immediate medical care with worsening, fever, or with any concerns. Print Language: Tristanian Stand Alone Forms: [facility] Award Info., Patient Portal Info Letter
--- NOTE | 2025-07-26 11:22 | EKG_ITS ---
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
--- NOTE | 2025-07-26 11:22 | XR_ITS ---
EXAMINATION: AP chest single view TECHNIQUE: AP portable upright chest single view Date and time: July 26, 2025, 1134 hours INDICATIONS: Shortness of breath today. FINDINGS: Normal heart size Lungs are clear. Osseous structures are intact IMPRESSION: No active disease
--- NOTE | 2025-07-26 11:22 | XR_ITS ---
Examination: CT brain head without contrast. 2-D sagittal coronal reconstructions Date and time of exam: July 26, 2025, 1207 hours INDICATIONS: Weakness dizziness beginning 5 days ago CTDI: vol (mGy): 44.6 DLP: (mGycm): 929 Technique: Multiple CT axial sections of the brain have been obtained, 5 mm slice thickness. Contrast has not been administered. 2-D sagittal, coronal reconstructions have been obtained Low dose protocols were performed. One or more of the following dose reduction techniques were used; automated exposure control, adjustment of the mA and/or KV according to patient size, use of iterative reconstruction technique. Findings: No significant ventricular enlargement. Intra-axial or extra-axial hemorrhage density is not seen. No mass effect or midline shift Basal cisterns are not remarkable. Fourth ventricle is midline. Cranial vault intact. Impression: Negative for acute hemorrhage, mass effect or midline shift
[2025-07-26 11:39] VITALS: BP 112/73; PULSE 78; RESP 18; TEMP 37; O2SAT 96
[2025-07-26] MEDS: RINGERS LACTATED 1000 ML 1,000 ML IV (12:35)
[2025-07-26 12:40] LABS: Lactate (Lactic Acid) 2.0 mMol/L (0.4-2.0)
[2025-07-26 12:41] LABS: Base Excess, Venous 2 (-3-3); O2 Saturation, Venous 95 % (96-97); PCO2, Venous 37 mmHg (36-56); PO2, Venous 67 mmHg (15-58); pH, Venous 7.45 (7.33-7.66)
[2025-07-26 12:53] LABS: Basophils # (Auto) 0.1 Thou/mm3 (0.0-0.2); Basophils % (Auto) 0 % (0-2.5); Eosinophils # (Auto) 0.3 Thou/mm3 (0.0-0.5); Eosinophils % (Auto) 2 % (0-10); Hematocrit 36.8 % (36.0-46.0); Hemoglobin 11.9 g/dL (12.0-16.0); Immature Granulocytes Auto 0.18 Thou/mm3 (0.00-0.00); Lymphocytes # (Auto) 3.5 Thou/mm3 (1.0-4.8); Lymphocytes % (Auto) 20 % (10-50); Mean Corpuscular HGB Conc 32.3 g/dl (31.0-37.0); Mean Corpuscular Hemoglobin 27.4 pg (25.0-35.0); Mean Corpuscular Volume 85 fL (80-100); Monocytes # (Auto) 1.1 Thou/mm3 (0.0-0.8); Monocytes % (Auto) 6 % (0-12); Neutrophils # (Auto) 12.3 Thou/mm3 (1.8-7.7); Neutrophils % (Auto) 71 % (37-80); Nucleated Red Blood Cell # 0.00 Thou/mm3 (0.00-0.00); Nucleated Red Blood Cell % 0 /100 WBC (0); Platelet Count 365 Thou/mm3 (140-440); RDW Standard Deviation 46.6 fL (36.4-46.3); Red Blood Count 4.34 Miln/mm3 (4.00-5.20); White Blood Count 17.4 Thou/mm3 (3.6-11.0)
[2025-07-26 13:13] LABS: Collection Type, Urine Clean Catch
[2025-07-26 13:22] LABS: Glucose Estimated Average 131 mg/dL (80-131); Hemoglobin A1C 6.2 % Hgb (4.8-6.0)
[2025-07-26 13:26] LABS: Bacteria,Urine 3+; Bilirubin,Urine Negative (Negative); Blood,Urine Negative (Negative); Calcium Oxalate Crystals,Urine 4+; Clarity,Urine Turbid (Clear/Hazy); Color,Urine Yellow (Lt Yel-Yel); Glucose, Urine Negative (Negative); Ketones,Urine Negative (Negative); Leukocyte Esterase,Urine Positive (Negative); Nitrite,Urine Positive (Negative); PH,Urine 6.5 (5.0-7.0); Protein,Urine Trace (Neg - Trace); RBC,Urine 2 /hpf (0-3); Specific Gravity,Urine 1.032 (1.001-1.035); Squamous Epithelial Cell,Urine 7 /hpf (0-5); Urobilinogen,Urine Negative mg/dL (0.0-1.0); WBC,Urine 10 /hpf (0-5)
[2025-07-26 13:27] LABS: Albumin, Serum 3.9 gm/dL (3.4-4.8); Albumin/Globulin Ratio 1.4 (1.2-2.2); Alkaline Phosphatase 112 U/L (46-116); Anion Gap 9 (7-16); Aspartate Amino Transferase 15 U/L (0-34); BUN/Creatinine Ratio 36 Ratio (12-20); Bilirubin,Direct 0.1 mg/dL (0.0-0.3); Bilirubin,Total 0.3 mg/dL (0.3-1.2); Blood Urea Nitrogen 29 mg/dL (9-23); C-Reactive Protein < 0.5 mg/dL (0.0-0.9); Calcium 9.1 mg/dL (8.3-10.6); Calcium (Corrected) 9.2 mg/dL (8.5-10.1); Carbon Dioxide 25.4 mMol/L (20.0-31.0); Chloride 109 mMol/L (98-107); Creatine Kinase 20 U/L (34-171); Creatinine (Component) 0.8 mg/dL (0.6-1.3); Free T3 2.7 pg/mL (2.3-4.2); Free T4 (Free Thyroxine) 2.05 ng/dL (0.89-1.76); Globulin 2.7 gm/dL (2.3-3.5); Glucose 151 mg/dL (74-106); Magnesium 1.8 mg/dL (1.6-2.6); Osmolality,Calculated 293 (275-295); Potassium 3.8 mMol/L (3.4-5.1); Sodium 143 mMol/L (136-145); Thyroid Stimulating Hormone 0.68 uIU/mL (0.55-4.78); Total Protein 6.6 gm/dL (5.7-8.2); Troponin I < 0.002 ng/mL (0.0-0.045); eGFR > 60 See Note
[2025-07-26 13:32] LABS: Culture Indicated,Urine Yes
[2025-07-26 13:33] LABS: Sed Rate (ESR) 44 mm/hr (0-30)
[2025-07-26 13:35] LABS: Alanine Aminotransferase 11 U/L (10-49); Procalcitonin 0.16 ng/ml (0.0-0.49)
[2025-07-26 14:04] LABS: B-Type Natriuretic Peptide 24 pg/mL (0-100)
[2025-07-26 14:07] LABS: Beta Hydroxybutyrate 0.1 mmol/L (<0.6)
[2025-07-26 14:40] VITALS: BP 113/66; PULSE 68; RESP 20; TEMP 36.8; O2SAT 99
[2025-07-26] MEDS: cefTRIAXone/D5w 1gm IV premix 1 GM/50 ML BAG IV (15:01)
[2025-07-26 15:36] VITALS: BP 130/91; PULSE 71; RESP 18; TEMP 36.9; O2SAT 99
== END 2025-07-26 15:37 | disposition home or self-care (01) ==
LOC: SERX 15:44
PROVIDERS: Emergency Provider Emergency Medicine; PCP Nurse Practitioner Family
DX: N39.0 Urinary tract infection, site not specified (principal); R53.1 Weakness; R42 Dizziness and giddiness; R06.02 Shortness of breath; I10 Essential (primary) hypertension; E78.00 Pure hypercholesterolemia, unspecified
CPT/HCPCS: 36415; 70450; 71045; 80053; 81001; 82010; 82248; 82550; 82803; 83036; 83605; 83735; 83880; 84145; 84439; 84443; 84481; 84484; 85025; 85652; 86140; 87040; 87077; 87086; 87186; 87502; 87635; 93005; 96361; 96365; 99284; J0696; J7120

== ENCOUNTER 2025-08-03 12:43 | Emergency (ER) | payer MEDICARE, MEDICAID, SELFPAY ==
--- NOTE | 2025-08-03 12:57 | EKG_ITS ---
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
[2025-08-03 13:20] VITALS: BP 113/73; PULSE 72; RESP 16; TEMP 36.8; O2SAT 97; BMI 28.0
--- NOTE | 2025-08-03 13:25 | XR_ITS ---
Examination: CT chest, without intravenous contrast. Sagittal and coronal 2-D reconstructions. Exam date and time: August 03, 2025, 1343 hours INDICATIONS: Patient fell 3 days ago with injury to the chest, right chest pain. CTDI:vol (mGy) 14.7 DLP: (mGycm) 467 Technique: Multiple 3.0 mm axial sections of the chest to been obtained. Bone and lung density settings are obtained. Sagittal and coronal 2-D reconstructions have been obtained. Low dose protocols were performed. One or more of the following dose reduction techniques were used; automated exposure control, adjustment of the mA and/or KV according to patient size, use of iterative reconstruction technique. Findings: Thoracic aorta pulmonary arteries intact No hemopericardium No pneumothorax pulmonary contusion or hemothorax Severe osteopenia Sternal segments thoracic vertebral bodies and ribs appear intact No visualized liver splenic or renal laceration No pancreatic mass Abdominal aorta intact Absent gallbladder IMPRESSION: Thoracic aorta pulmonary arteries intact No hemopericardium, pneumothorax, pulmonary contusion or hemothorax
--- NOTE | 2025-08-03 13:26 | PD.EDCHEST ---
ED Chest Pain RME/HPI General Chief Complaint: Chest Pain Stated Complaint: RIGHT CHEST PAIN RADIATES TO LEFT X 3DAYS Time Seen by Provider: 08/03/25 13:22 Arrival date/time: 08/03/25 12:43 70-year-old female patient with significant history of diabetes mellitus hypothyroidism hypertension came in for evaluation regarding right-sided chest pain. Patient sustained a ground-level fall about a week ago, since then has been having pain. However pain radiates to the left chest now. Denies any shortness of breath denies any cough denies any fever. Pain is worse with deep pressing and coughing seen by PCP and was given muscle relaxant which according to her is not working. Related Data Home Medications ?Medication ?Instructions ?Recorded ?Confirmed levothyroxine 100 mcg tablet 100 mcg PO QDAY 05/26/20 01/07/25 lisinopril 10 mg tablet 5 mg PO QDAY 05/26/20 01/07/25 metformin 500 mg tablet 500 mg PO BID 05/26/20 01/07/25 Held on 02/17/23. Instructions: Resume on 02/19/23. Resume Metformin in 48 hours omeprazole 20 mg capsule,delayed 20 mg PO QDAY 04/02/21 01/07/25 release calcium 600 mg (as 1 tab PO QDAY 02/17/23 01/07/25 carbonate)-vitamin D3 10 mcg (400 unit) tablet folic acid 1 mg tablet 1 mg PO QDAY 02/17/23 01/07/25 nitrofurantoin 100 mg PO BID 03/25/24 01/07/25 monohydrate/macrocrystals 100 mg capsule (Macrobid) estradiol 0.01% (0.1 mg/gram) 2 g vaginal DIRECTED 07/02/24 01/07/25 vaginal cream (Estrace) Previous Rx's ?Medication ?Instructions ?Recorded acetaminophen-caffeine 500 mg-65 1 tab PO Q8H PRN pain #30 tabs 01/14/25 mg tablet (Excedrin Tension Headache) famotidine 40 mg tablet (Pepcid) 40 mg PO QDAY #30 tabs 02/01/25 ondansetron 4 mg disintegrating 4 mg PO Q6H PRN nausea and 02/01/25 tablet vomiting #10 tabs cefdinir 300 mg capsule 300 mg PO BID #14 caps 07/26/25 Allergies Allergy/AdvReac Type Severity Reaction Status Date / Time No Known Allergies Allergy Verified 08/03/25 12:47 Review of Systems Review of Systems Narrative Review of Systems: Review of system reviewed and within normal limits except mentioned in HPI ED Exam Narrative Physical exam: VITAL SIGNS: Reviewed. GENERAL APPEARANCE: Alert and interactive, follows commands, no acute distress, HEAD AND FACE: Non-traumatic. ENT: PERRL, pink conjunctivitis, eyelid no trauma, Mucous membrane moist. NECK: Supple, nontender, no nuchal rigidity. CHEST: Right chest wall tenderness, no crepitus, no paradoxical movement, no retractions. LUNGS: Clear, well ventilated, symmetric, no rales, no wheezing, no ronchi, no stridor, good breath sounds bilaterally. HEART: Regular rate, regular rhythm, no murmur, no gallops. ABDOMEN: Soft, positive bowel sounds, nondistended, no guarding, nontender, no rebound, no masses, RECTAL: Deferred. GENITAL: Deferred. NEUROLOGICAL: Gross motor function intact sensory function intact, Appropriate for age. MUSCULOSKELETAL: low back nontender, full range of motion. EXTREMITIES: Nontender, full range of motion. SKIN: Color pink, dry, no rash, no lacerations, no abrasions, no contusions. LYMPHATICS: Deferred. Course Quality Measures none Orders Category Date Time Status EKG (ED ONLY) *Do not use* NOW Care 08/03/25 12:[address] chest wo con Stat Exams 08/03/25 13:25 Completed EKG (ED Only) Stat Exams 08/03/25 12:57 Draft B-Type Natriuretic Peptide Stat Lab 08/03/25 13:50 Completed CBC Stat Lab 08/03/25 13:50 Completed Comprehensive Metabolic Panel Stat Lab 08/03/25 13:50 Completed Partial Thromboplastin Time Stat Lab 08/03/25 13:50 Completed Troponin I Stat Lab 08/03/25 13:50 Completed HYDROcodone/APAP 10/325 [[place] 10/325] Med 08/03/25 13:25 Discontinued 1 tab PO X1 ONE mg Hyd/Al Hyd/Lenore Susp [Maalox Susp] Med 08/03/25 13:25 Discontinued 30 ml PO X1 ONE Vital Signs Vital signs: Vital Signs Temperature 98.3 F 08/03/25 13:20 Pulse Rate 72 08/03/25 13:20 Respiratory Rate 16 08/03/25 13:20 Blood Pressure 113/73 08/03/25 13:20 Pulse Oximetry (%) 97 08/03/25 13:20 Oxygen Delivery Method Room Air 08/03/25 13:20 Chest Pain MDM Narrative MDM Narrative:: 70-year-old female patient with significant history of diabetes mellitus hypothyroidism hypertension came in for evaluation regarding right-sided chest pain. Patient sustained a ground-level fall about a week ago, since then has been having pain. However pain radiates to the left chest now. Denies any shortness of breath denies any cough denies any fever. Pain is worse with deep pressing and coughing seen by PCP and was given muscle relaxant which according to her is not working. Patient's laboratory workup all came back unremarkable. CT chest came back with no acute pathology noted results discussed with the patient. EKG showed normal sinus rhythm, 71 bpm, no ST segment elevation depression noted. Patient data External records reviewed:: None Clinical information provided by:: patient Social determinants that could affect healthcare access:: none Patient has the following chronic illnesses:: None How is presenting disease/condition affected by chronic disease/condition?: uneffected by Evaluation data The following diagnostics were reviewed and interpreted by me:: lab results, radiology exam(s) and EKG tracing(s) Lab and/or radiology exams considered but not ordered:: None Interpretation Summary: Stable Medications / Prescriptions Medications or Prescriptions considered but not ordered:: None Medication administrations:: Medication Administration History Discontinued Medications Hydrocodone Bitart/Acetaminophen (Hydrocodone/[place] 10/325 Tab) 1 tab PO X1 ONE Stop: 08/03/25 13:26 Last Admin: 08/03/25 15:53 Dose: 1 tab Documented By: Al Hydrox/Mg Hydrox/Simethicone (Mg Hyd/Al Hyd/Lenore (Maalox Reg) Susp 30 Ml Udc) 30 ml PO X1 ONE Stop: 08/03/25 13:26 Last Admin: 08/03/25 15:53 Dose: 30 ml Documented By: Lon Coburn Consultations Consultation(s) initiated? (list below): No Diagnosis Chest Pain Differential Diagnosis: fracture of rib and pneumothorax Most likely diagnosis given after review of the tests above:: Chest wall contusion Admission Indicated Admission indicated?: not indicated Admission Request Was there a request for admission?: No Disposition Plan Disposition Plan: Discharge Discharge Attestation Discharge Attestation: The patient was given an opportunity to ask questions and understood the discharge instructions. Discharge instructions specifically effects, indications for sooner follow up or return to the emergency department, and the expected course of current diagnosis. Patient condition: Stable Discharge Plan Plan Patient Disposition: HOME (Self Care) Discharge Disposition comment: Stable Prescriptions/Referrals Prescriptions/Med Rec: No Action nitrofurantoin monohyd/m-cryst [Macrobid] 100 mg capsule 100 mg PO BID Rx Instructions: must administer with a meal/food lidocaine HCl [Xylocaine] 10 mg/mL (1 %) solution 20 ml Infiltration X1 Qty: 20 0RF triamcinolone acetonide 40 mg/mL suspension 40 mg intra-articular X1 Qty: 1 0RF estradiol [Estrace] 0.01 % (0.1 mg/gram) cream 2 g vaginal DIRECTED Patient Comments: twice a week metformin 500 mg Tablet 500 mg PO BID levothyroxine 100 mcg Tablet 100 mcg PO QDAY lisinopril 10 mg Tablet 5 mg PO QDAY omeprazole 20 mg capsule,delayed release(DR/EC) 20 mg PO QDAY Patient Comments: TAKE 1 CAPSULE BY MOUTH EVERY DAY 30 MINUTES TO 1 HOUR BEFORE A MEAL folic acid 1 mg tablet 1 mg PO QDAY Patient Comments: TAKE 1 TABLET BY MOUTH EVERY DAY calcium carbonate-vitamin D3 600 mg-10 mcg (400 unit) tablet 1 tab PO QDAY Patient Comments: TAKE ONE TABLET VIA ORAL ROUTE ONCE A DAY. Excedrin Tension Headache 500-65 mg tablet 1 tab PO Q8H PRN (Reason: pain) Qty: 30 0RF famotidine [Pepcid] 40 mg tablet 40 mg PO QDAY Qty: 30 0RF ondansetron 4 mg tablet,disintegrating 4 mg PO Q6H PRN (Reason: nausea and vomiting) Qty: 10 0RF cefdinir 300 mg capsule 300 mg PO BID Qty: 14 0RF Referrals: Purnima Duff FNP [Primary Care Provider] - In 1 week Problem List Clinical Impression: Chest wall contusion Patient/Caregiver Discharge Instructions Discharge Activity: activity as tolerated Education Materials: ED Chest Wall Contusion Additional Instructions: Thank you for the opportunity for serving you today. You are stable for discharged . You are advised to: Follow-up with your PCP in 1 to 2 days Return to ED for worsening of symptoms Increase oral fluids Take medication as prescribed by your PCP for pain Print Language: Azeri Stand Alone Forms: [place] Award Info., Patient Portal Info Letter PA/MARYANNE Supervising Physician SHANE/MARYANNE Supervising Physician: mD Graham
[2025-08-03 14:34] LABS: Basophils # (Auto) 0.0 Thou/mm3 (0.0-0.2); Basophils % (Auto) 0 % (0-2.5); Eosinophils # (Auto) 0.3 Thou/mm3 (0.0-0.5); Eosinophils % (Auto) 2 % (0-10); Hematocrit 37.2 % (36.0-46.0); Hemoglobin 11.7 g/dL (12.0-16.0); Immature Granulocytes Auto 0.09 Thou/mm3 (0.00-0.00); Lymphocytes # (Auto) 3.8 Thou/mm3 (1.0-4.8); Lymphocytes % (Auto) 26 % (10-50); Mean Corpuscular HGB Conc 31.5 g/dl (31.0-37.0); Mean Corpuscular Hemoglobin 27.1 pg (25.0-35.0); Mean Corpuscular Volume 86 fL (80-100); Monocytes # (Auto) 0.9 Thou/mm3 (0.0-0.8); Monocytes % (Auto) 6 % (0-12); Neutrophils # (Auto) 9.5 Thou/mm3 (1.8-7.7); Neutrophils % (Auto) 65 % (37-80); Nucleated Red Blood Cell # 0.00 Thou/mm3 (0.00-0.00); Nucleated Red Blood Cell % 0 /100 WBC (0); Platelet Count 310 Thou/mm3 (140-440); RDW Standard Deviation 49.5 fL (36.4-46.3); Red Blood Count 4.32 Miln/mm3 (4.00-5.20); White Blood Count 14.6 Thou/mm3 (3.6-11.0)
[2025-08-03 14:40] LABS: B-Type Natriuretic Peptide 123 pg/mL (0-100)
[2025-08-03 14:41] LABS: Partial Thromboplastin Time 24.6 Seconds (22.0-36.0)
[2025-08-03 14:46] LABS: Albumin, Serum 4.0 gm/dL (3.4-4.8); Albumin/Globulin Ratio 1.5 (1.2-2.2); Alkaline Phosphatase 113 U/L (46-116); Anion Gap 12 (7-16); Aspartate Amino Transferase 17 U/L (0-34); BUN/Creatinine Ratio 24 Ratio (12-20); Bilirubin,Total 0.2 mg/dL (0.3-1.2); Blood Urea Nitrogen 22 mg/dL (9-23); Calcium 9.4 mg/dL (8.3-10.6); Calcium (Corrected) 9.4 mg/dL (8.5-10.1); Carbon Dioxide 25.0 mMol/L (20.0-31.0); Chloride 109 mMol/L (98-107); Creatinine (Component) 0.9 mg/dL (0.6-1.3); Estimated Creatinine Clearance 52.3 mL/min (>60); Globulin 2.7 gm/dL (2.3-3.5); Glucose 114 mg/dL (74-106); Osmolality,Calculated 294 (275-295); Potassium 3.9 mMol/L (3.4-5.1); Sodium 146 mMol/L (136-145); Total Protein 6.7 gm/dL (5.7-8.2); Troponin I < 0.002 ng/mL (0.0-0.045); eGFR > 60 See Note
[2025-08-03 14:51] LABS: Alanine Aminotransferase 9 U/L (10-49)
[2025-08-03] MEDS: MG HYD/AL HYD/SIME (Maalox Reg) SUSP 30 ML UDC PO (15:53)
== END 2025-08-03 17:27 | disposition home or self-care (01) ==
PROVIDERS: Nurse Practitioner Family; Emergency Provider Emergency Medicine; PCP Nurse Practitioner Family
DX: S20.219A Contusion of unspecified front wall of thorax, initial encounter (principal); W18.30XA Fall on same level, unspecified, initial encounter; I10 Essential (primary) hypertension
CPT/HCPCS: 36415; 71250; 80053; 83880; 84484; 85025; 85730; 93005; 99283; A9270